=== PATIENT | female | born 1960 | race Caucasian/White ===

== ENCOUNTER 2017-04-17 19:44 | Emergency (ER) | payer MEDICARE, MEDICAID ==
[~2017-04-17 19:44] MED LIST: /CARB20TAB OR; /CELE20CA PO; /ESCI20TA PO; /LAMO10TA; /LAMO10TA OR; /LAMO10TA PO; /LAMO15TA; /LOR25TA PO; /METH500TA OR; /ONDA4TA OR; /TIOT18INH INH; ABIL1TAB11 PO; ACYC400T PO; ALBU17IN2 INH; ASPI81TA83 OR; ASPI81TA85 PO; BACL10TA2 OR; BUSP5TAB45 PO; CLAR5CHW PO; CLON0.5T PO; COLA100C2 PO; DILA100C; DOCQ100C PO; EFFE75CA75; FLEX10TA2 PO; FLON0.05; HYDR50TA8; HYDROCODONE PO; IBUP600T OR; KLON0.5T OR; LASI20TA OR; LOPE2TAB3 PO; MELO7.5T3 PO; NAPR500T3 PO; OLAN5TAB PO; OMEP20TA7 OR; OSCA200T PO; OXCA600T PO; OXYCARBAZEPINE PO; OYSCTAB3 PO; OYST500T76 PO; PHEN 25 PO; PREG100CA PO; PREG50CA PO; PROAAER IN; PROAAER10 INH; PROAIR INH; PROC5TAB PO; QUET30TA; ROBA750T PO; ROBA750T4 PO; RYBIX SL; SERO400T PO; SIMV10TA2 PO; SKEL800T5; SPIR50TA2 OR; SUMA100T2 PO; SYMB16INH INH; SYMB80AE INH; THERGRAN PO; TIOT18INH INH; TOPI25TA2 OR; TRAM50TA2 OR; TRAM50TA2 PO; TRAZ100T OR; TRIL1TAB PO; TRIL600T PO; TYLE500T53 OR; ULTRAM OR; VIT D; VIT D 2000 PO; VITAMIN D PO; VITAMIN D50000 UNT; ZOMI5TAB PO; ZYRT10TA6 PO; [UNRECOGNIZED DRUG - OTHER] PO; [UNRECOGNIZED DRUG - OTHER] TOP
[2017-04-17 19:46] VITALS: BP 137/90
[2017-04-17] MEDS ORDERED: BACL10TA2 (20:02)
[2017-04-17] MEDS ORDERED: BREO1INH INH (20:02)
[2017-04-17] MEDS ORDERED: HYDR50TA70 (20:02)
[2017-04-17] MEDS ORDERED: SING5CHW23 PO (20:02)
[2017-04-17] MEDS ORDERED: INCR1INH IN (20:02)
[2017-04-17] MEDS ORDERED: IBUPROFEN 600 MG TAB PO ONE (21:15)
== END 2017-04-17 21:29 | disposition home or self-care (01) ==
LOC: M ED 19:44
DX: S29.012A Strain of muscle and tendon of back wall of thorax, initial encounter (principal); X50.0XXA Overexertion from strenuous movement or load, initial encounter; Y92.099 Unspecified place in other non-institutional residence as the place of occurrence of the external cause; Y93.89 Activity, other specified; Y99.9 Unspecified external cause status

== ENCOUNTER 2017-05-25 10:47 | Emergency (ER) | payer MEDICARE, MEDICAID ==
[~2017-05-25] VITALS: Ht 154.9 cm; Wt 90.9 kg
[~2017-05-25 10:47] MED LIST changes: +BACL10TA2; +BREO1INH INH; +HYDR50TA70; +INCR1INH IN; +SING5CHW23 PO
[2017-05-25] MEDS ORDERED: CETI10TA (10:57)
[2017-05-25] MEDS ORDERED: TAB-TAB (10:57)
[2017-05-25] MEDS ORDERED: LAMO150T (10:57)
[2017-05-25] MEDS ORDERED: IBUP80TA (10:57)
[2017-05-25 13:05] LABS: CALCIUM OXALATE CRYSTALS SMALL
[2017-05-25 13:19] VITALS: BP 140/83
[2017-05-25] MEDS ORDERED: PERCOCET 5MG/325MG TAB PO ONE (13:30)
[2017-05-25] MEDS ORDERED: NORCO, ANEXSIA 5/325MG TABLET (HYDROcodone/ACETAMINOPHEN) PO ONE (13:30)
[2017-05-25] MEDS ORDERED: NYSTOI TOP (13:30)
[2017-05-25] MEDS ORDERED: FLUCONAZOLE 100 MG TAB PO ONE (13:30)
[2017-05-25] MEDS ORDERED: FLUCONAZOLE 50MG TABLET PO ONE (13:30)
[2017-05-25] MEDS ORDERED: BACT800T5 PO (13:33)
== END 2017-05-25 13:42 | disposition home or self-care (01) ==
LOC: M ED 10:47
DX: N39.0 Urinary tract infection, site not specified (principal); B37.3 Candidiasis of vulva and vagina; F25.9 Schizoaffective disorder, unspecified; F43.10 Post-traumatic stress disorder, unspecified; E78.70 Disorder of bile acid and cholesterol metabolism, unspecified; F17.210 Nicotine dependence, cigarettes, uncomplicated; Z79.899 Other long term (current) drug therapy; Z91.041 Radiographic dye allergy status; Z88.8 Allergy status to other drugs, medicaments and biological substances; Z88.5 Allergy status to narcotic agent; Z91.018 Allergy to other foods; Z91.013 Allergy to seafood; Z91.02 Food additives allergy status; Z91.011 Allergy to milk products

== ENCOUNTER 2017-07-22 00:56 | Emergency (ER) | payer MEDICARE, MEDICAID ==
[~2017-07-22] VITALS: Ht 154.9 cm; Wt 111.3 kg
[~2017-07-22 00:56] MED LIST changes: +BACT800T5 PO; +CETI10TA; +IBUP80TA; +LAMO150T; +NYSTOI TOP; +TAB-TAB
[2017-07-22] MEDS ORDERED: MORPHINE 4 MG/ML 1ML SYRINGE IM ONE (02:00)
[2017-07-22 02:22] VITALS: BP 138/72
--- NOTE | 2017-07-22 08:51 | REP ---
LUMBOSACRAL SPINE: Five views of the lumbosacral spine are performed. There is an old compression fracture of L3 similar to the prior study of 05/12/2013. No new compression fracture is seen. There is diffuse spurring and disc space narrowing. There is severe disc space narrowing at L3-4. The disc space narrowing at L4-5 and L5-S1 is mild but increased since prior study. There is sclerosis at the posterior facet joints of L4-5 and L5-S1. There is mild curvature toward the right. IMPRESSION: Old compression fracture L3. Degenerative changes. No acute fracture. Signed by Linwood Beltran MD 07/25/2017 09:43 A
== END 2017-07-22 02:26 | disposition home or self-care (01) ==
LOC: M ED 00:56
DX: M51.37 Other intervertebral disc degeneration, lumbosacral region (principal); S39.012A Strain of muscle, fascia and tendon of lower back, initial encounter; W06.XXXA Fall from bed, initial encounter; Y92.013 Bedroom of single-family (private) house as the place of occurrence of the external cause; Y93.89 Activity, other specified; Y99.8 Other external cause status; M19.90 Unspecified osteoarthritis, unspecified site; E11.9 Type 2 diabetes mellitus without complications; R56.9 Unspecified convulsions; G43.909 Migraine, unspecified, not intractable, without status migrainosus; J98.4 Other disorders of lung; F43.10 Post-traumatic stress disorder, unspecified; F25.9 Schizoaffective disorder, unspecified; Z79.899 Other long term (current) drug therapy; Z79.51 Long term (current) use of inhaled steroids; Z88.5 Allergy status to narcotic agent; Z88.8 Allergy status to other drugs, medicaments and biological substances; Z91.013 Allergy to seafood; Z91.011 Allergy to milk products; Z91.018 Allergy to other foods; Z91.041 Radiographic dye allergy status; F17.210 Nicotine dependence, cigarettes, uncomplicated

== ENCOUNTER 2017-08-02 06:58 | Emergency (ER) | payer OTHER, MEDICARE, MEDICAID ==
[~2017-08-02] VITALS: Ht 154.9 cm; Wt 84.0 kg
[2017-08-02] MEDS ORDERED: NORCO, ANEXSIA 5/325MG TABLET (HYDROcodone/ACETAMINOPHEN) PO ONE (07:15)
--- NOTE | 2017-08-02 08:42 | REP ---
AP pelvis and right hip: AP pelvis: There is chronic deformity of the r left iliac wing, unchanged from 04/23/2016. There is no pelvic fracture. The sacroiliac articulations are unremarkable. There is mild joint space narrowing of the hips bilaterally. There are pelvic calcifications, likely phleboliths. There is an accessory ossicle at the superior margin of the pubic symphysis. Impression: No pelvic fracture. Right hip two views: There is joint space narrowing compatible with osteoarthritis. There is no fracture or dislocation. There is demineralization. Impression: Joint space narrowing and demineralization. No fracture. Signed by Linwood Hyman MD 08/02/2017 08:33 A
--- NOTE | 2017-08-02 08:43 | REP ---
Right knee four views: Comparison 04/23/2016. There is diffuse demineralization. Old healed fracture with deformity of the distal femur. Advanced tricompartment osteoarthritis, unchanged. No acute fracture or dislocation. No hemarthrosis. Signed by Linwood Hyman MD 08/02/2017 08:34 A
--- NOTE | 2017-08-02 08:45 | REP ---
Right ankle four views: Comparison 04/23/2016. There is no fracture or dislocation. There is diffuse demineralization, unchanged. There is a calcified lesion in the distal tibia, unchanged, compatible with enchondroma. The mortise is symmetric. There is a tiny calcaneal plantar spur. Impression: Demineralization. Probable enchondroma in the distal tibia. No fracture or dislocation. Signed by Linwood Hyman MD 08/02/2017 08:36 A
[2017-08-02 10:04] VITALS: BP 135/85
--- NOTE | 2017-08-02 12:17 | ED PDOC ---
Post-Departure Follow-Up certified letter sent regarding radiology report Yessenia Mcgill MD Aug 02, 2017 12:17
== END 2017-08-02 10:12 | disposition home or self-care (01) ==
LOC: EDBD 06:58 → M ED 06:58
DX: S80.11XA Contusion of right lower leg, initial encounter (principal); V03.19XA Pedestrian with other conveyance injured in collision with car, pick-up truck or van in traffic accident, initial encounter; Y92.410 Unspecified street and highway as the place of occurrence of the external cause; Y93.89 Activity, other specified; Y99.9 Unspecified external cause status

== ENCOUNTER 2017-08-31 11:05 | Emergency (ER) | payer MEDICARE, MEDICAID ==
[~2017-08-31] VITALS: Ht 165.1 cm; Wt 114.8 kg
[2017-08-31] MEDS ORDERED: NS 3,440 ML in APPROPRIATE DILUENT 1 EA IV ONE (11:30)
[2017-08-31 11:37] LABS: BASO % 0.6 % (0.0-1.0); EOS # 0.1 10^3/uL (0.0-0.50); EOS % 1.6 % (0.0-3.0); IMMATURE GRANULOCYTE % 1.3 % (0-0); LYMPH % 31.9 % (24.0-44.0); MEAN CORPUSCULAR HEMOGLOBIN 30.6 pg (27.0-33.0); MEAN CORPUSCULAR HGB CONC 34.4 g/dl (32.0-36.5); MEAN CORPUSCULAR VOLUME 89.1 fl (80.0-96.0); MONO # 0.3 10^3/uL (0.0-0.8); MONO % 5.3 % (0.0-5.0); NEUTROPHILS # 3.8 10^3/uL (1.8-7.7); NEUTROPHILS % 59.3 % (36.0-66.0); PLATELET COUNT, AUTOMATED 195 10^3/uL (150-450); RED CELL DISTRIBUTION WIDTH 13.5 % (11.5-14.5); WHITE BLOOD COUNT 6.4 10^3/uL (4.0-10.0)
[2017-08-31 11:48] LABS: ABG BASE EXCESS -2.3 (-2.0-2.0); ABG HCO3 22.5 MEQ/L (22.0-26.0); ABG PARTIAL PRESSURE CO2 39.1 mmHg (35.0-45.0); ABG PARTIAL PRESSURE O2 70.3 mmHg (75.0-100.0); ABG STANDARD HCO3 22.5 MEQ/L (22.0-26.0); ABG TOTAL CO2 23.7 MEQ/L (22.0-29.0); ABG pH (ARTERIAL) 7.378 UNITS (7.350-7.450)
[2017-08-31 12:00] VITALS: BP 106/59
[2017-08-31 12:00] LABS: INR 0.96
[2017-08-31 12:08] LABS: ALBUMIN 3.3 GM/DL (3.2-5.2); ALBUMIN/GLOBULIN RATIO 0.83 (1.00-1.93); ALKALINE PHOSPHATASE 177 U/L (45-117); ALT/SGPT 56 U/L (12-78); AMYLASE 20 U/L (25-115); ANION GAP 11 MEQ/L (8-16); AST/SGOT 27 U/L (7-37); BILIRUBIN,DIRECT < 0.1 MG/DL (0.0-0.2); BILIRUBIN,TOTAL 0.4 MG/DL (0.2-1.0); BLOOD UREA NITROGEN 9 MG/DL (7-18); CALCIUM LEVEL 8.6 MG/DL (8.5-10.1); CARBON DIOXIDE LEVEL 24 MEQ/L (21-32); CHLORIDE LEVEL 101 MEQ/L (98-107); CREATININE FOR GFR 0.72 MG/DL (0.55-1.02); GLOMERULAR FILTRATION RATE > 60.0 (>51); POTASSIUM SERUM 3.7 MEQ/L (3.5-5.1); SODIUM LEVEL 136 MEQ/L (136-145); TOTAL PROTEIN 7.3 GM/DL (6.4-8.2)
[2017-08-31 12:12] LABS: GLUCOSE, FASTING 439 MG/DL (70-105)
--- NOTE | 2017-08-31 12:17 | REP ---
Clinical: Sepsis . Comparison: 04/23/2016 . Findings: The mediastinum and cardiac silhouette are stable and within normal limits for portable technique. The lung min are clear without acute consolidation, effusion, or pneumothorax. Skeletal structures are intact. Impression: No acute cardiopulmonary process appreciated. Signed by Bonifacio Chin MD 08/31/2017 12:08 P
--- NOTE | 2017-08-31 20:39 | ECGEPIP ---
Stationary ECG Study [facility] - ED Test Date: 2017-08-31 Pat Name: DAVID CRUZ Department: Room: - Gender: F [employer] Operator: tolu : 1960 Requested By: Yessenia Mcgill Order Number: [id number] Reading MD: Yessenia Mcgill Measurements Intervals [place] Rate: 69 P: 13 RI: 163 QRS: 40 QRSD: 89 T: 54 QT: 424 QTc: 456 Interpretive Statements SINUS RHYTHM POSSIBLE INFERIOR MYOCARDIAL INFARCTION, OF INDETERMINATE AGE WITH POSTERIOR EXTENSION MODERATE T-WAVE ABNORMALITY, CONSIDER ANTERIOR ISCHEMIA SIMILAR 11/06/14 Electronically Signed On 08-31-2017 20:38:42 EST by Yessenia Mcgill
== END 2017-08-31 12:30 | disposition left against medical advice (07) ==
LOC: EDBD 11:05 → M ED 11:05
DX: R56.9 Unspecified convulsions (principal); E11.9 Type 2 diabetes mellitus without complications; F25.9 Schizoaffective disorder, unspecified; F43.10 Post-traumatic stress disorder, unspecified; Z79.899 Other long term (current) drug therapy; Z79.51 Long term (current) use of inhaled steroids; Z88.5 Allergy status to narcotic agent; Z88.8 Allergy status to other drugs, medicaments and biological substances; Z91.011 Allergy to milk products; Z91.013 Allergy to seafood; Z91.018 Allergy to other foods; Z91.041 Radiographic dye allergy status

== ENCOUNTER → 2018-02-17 | Outpatient (REF) | payer MEDICARE | LOC: M SFHCPLAZ 11:57 | DX: C44.311 Basal cell carcinoma of skin of nose (principal) | CPT/HCPCS: 88305 ==

== ENCOUNTER 2018-02-27 19:42 | Emergency (ER) | payer MEDICARE ==
[2018-02-27] MEDS: FLUCONAZOLE 100 MG TAB PO (23:15)
[2018-02-27] MEDS: BACTRIM 160MG/800MG DS TAB PO (23:15)
== END 2018-02-27 23:38 | disposition home or self-care (01) ==
LOC: M ED 19:42
DX: L03.012 Cellulitis of left finger (principal); X08.8XXA Exposure to other specified smoke, fire and flames, initial encounter; Y92.9 Unspecified place or not applicable; Y93.9 Activity, unspecified; Y99.9 Unspecified external cause status; Z72.0 Tobacco use; Z79.899 Other long term (current) drug therapy; Z88.6 Allergy status to analgesic agent; Z88.5 Allergy status to narcotic agent; Z88.8 Allergy status to other drugs, medicaments and biological substances; Z91.02 Food additives allergy status; Z91.018 Allergy to other foods; Z91.041 Radiographic dye allergy status; Z91.013 Allergy to seafood; Z91.011 Allergy to milk products
CPT/HCPCS: 10060

== ENCOUNTER 2018-03-01 08:29 | Emergency (ER) | payer MEDICARE ==
[2018-03-01] MEDS: ONDANSETRON 4MG/2ML VIAL (J2405) IV (11:13)
[2018-03-01] MEDS: MORPHINE 4 MG/ML 1ML VIAL/SYRINGE (J2270) IV (11:13)
[2018-03-01 11:20] LABS: HEMATOCRIT 45.2 % (36.0-47.0); HEMOGLOBIN 15.2 g/dl (12.0-15.5); MEAN CORPUSCULAR HEMOGLOBIN 29.6 pg (27.0-33.0); MEAN CORPUSCULAR HGB CONC 33.6 g/dl (32.0-36.5); MEAN CORPUSCULAR VOLUME 88.1 fl (80.0-96.0); PLATELET COUNT, AUTOMATED 242 10^3/uL (150-450); RED BLOOD COUNT 5.13 10^6/uL (4.00-5.40); RED CELL DISTRIBUTION WIDTH 12.3 % (11.5-14.5)
[2018-03-01 11:25] LABS: ANION GAP 8 MEQ/L (8-16); BLOOD UREA NITROGEN 12 MG/DL (7-18); CARBON DIOXIDE LEVEL 25 MEQ/L (21-32); CHLORIDE LEVEL 108 MEQ/L (98-107); CREATININE FOR GFR 0.62 MG/DL (0.55-1.30); GLOMERULAR FILTRATION RATE > 60.0 (>51); GLUCOSE, FASTING 288 MG/DL (70-100); POTASSIUM SERUM 3.9 MEQ/L (3.5-5.1); SODIUM LEVEL 141 MEQ/L (136-145)
[2018-03-01 11:30] LABS: INR 0.95; PROTHROMBIN TIME 12.8 SECONDS (12.4-14.5)
[2018-03-01 11:31] LABS: PARTIAL THROMBOPLASTIN TIME 23.8 SECONDS (26.8-37.9)
== END 2018-03-01 17:50 | disposition short-term general hospital (02) ==
LOC: M ED 08:29
DX: S72.331A Displaced oblique fracture of shaft of right femur, initial encounter for closed fracture (principal); W01.10XA Fall on same level from slipping, tripping and stumbling with subsequent striking against unspecified object, initial encounter; Y92.099 Unspecified place in other non-institutional residence as the place of occurrence of the external cause; Y93.9 Activity, unspecified; Y99.8 Other external cause status; M17.0 Bilateral primary osteoarthritis of knee; J44.9 Chronic obstructive pulmonary disease, unspecified; F41.9 Anxiety disorder, unspecified; F31.9 Bipolar disorder, unspecified; F43.10 Post-traumatic stress disorder, unspecified; E66.01 Morbid (severe) obesity due to excess calories; G40.909 Epilepsy, unspecified, not intractable, without status epilepticus; M81.0 Age-related osteoporosis without current pathological fracture; F17.210 Nicotine dependence, cigarettes, uncomplicated; Z88.5 Allergy status to narcotic agent; Z88.6 Allergy status to analgesic agent; Z88.8 Allergy status to other drugs, medicaments and biological substances; Z91.011 Allergy to milk products; Z91.041 Radiographic dye allergy status; Z91.013 Allergy to seafood; Z91.018 Allergy to other foods; Z91.048 Other nonmedicinal substance allergy status; Z79.899 Other long term (current) drug therapy
CPT/HCPCS: J2270

== ENCOUNTER 2018-03-20 02:24 | Emergency (ER) | payer MEDICARE | END 2018-03-20 02:31 | disposition left against medical advice (07) | LOC: M ED 02:24 | DX: Z53.29 Procedure and treatment not carried out because of patient's decision for other reasons (principal) ==

== ENCOUNTER 2018-03-21 09:16 | Emergency (ER) | payer MEDICARE ==
[2018-03-21] MEDS: PERCOCET 5MG/325MG TAB PO (10:00)
== END 2018-03-21 11:38 | disposition home or self-care (01) ==
LOC: M ED 09:16
DX: Z76.0 Encounter for issue of repeat prescription (principal); M79.606 Pain in leg, unspecified; Z79.899 Other long term (current) drug therapy; Z88.5 Allergy status to narcotic agent; Z91.041 Radiographic dye allergy status; Z91.018 Allergy to other foods; Z91.013 Allergy to seafood; Z91.011 Allergy to milk products; Z91.02 Food additives allergy status; Z98.890 Other specified postprocedural states
CPT/HCPCS: 99283

== ENCOUNTER 2018-03-24 09:45 | Emergency (ER) | payer MEDICARE ==
[2018-03-24] MEDS: PERCOCET 5MG/325MG TAB PO (10:18)
== END 2018-03-24 11:00 | disposition home or self-care (01) ==
LOC: M ED 09:45
DX: G89.29 Other chronic pain (principal); M25.551 Pain in right hip; M25.552 Pain in left hip; Z76.0 Encounter for issue of repeat prescription; G43.909 Migraine, unspecified, not intractable, without status migrainosus; R56.9 Unspecified convulsions; Z72.0 Tobacco use; Z79.899 Other long term (current) drug therapy; Z91.02 Food additives allergy status; Z91.018 Allergy to other foods; Z91.011 Allergy to milk products; Z91.013 Allergy to seafood; Z88.5 Allergy status to narcotic agent; Z88.8 Allergy status to other drugs, medicaments and biological substances
CPT/HCPCS: 99282

== ENCOUNTER 2018-03-25 20:08 | Emergency (ER) | payer MEDICARE ==
[2018-03-25] MEDS ORDERED: OXYCODONE/APAP 5MG/325MG(BULK FOR ED) 1 TABLET PO (22:15)
== END 2018-03-25 22:36 | disposition home or self-care (01) ==
LOC: M ED 20:08
DX: S63.501A Unspecified sprain of right wrist, initial encounter (principal); S63.502A Unspecified sprain of left wrist, initial encounter; W19.XXXA Unspecified fall, initial encounter; Y92.410 Unspecified street and highway as the place of occurrence of the external cause; Y93.9 Activity, unspecified; Y99.9 Unspecified external cause status; F17.210 Nicotine dependence, cigarettes, uncomplicated; Z79.899 Other long term (current) drug therapy; Z88.5 Allergy status to narcotic agent; Z88.8 Allergy status to other drugs, medicaments and biological substances; Z91.011 Allergy to milk products; Z91.013 Allergy to seafood; Z91.018 Allergy to other foods; Z91.041 Radiographic dye allergy status
CPT/HCPCS: 99282

== ENCOUNTER 2018-04-11 01:29 | Emergency (ER) | payer MEDICARE | END 2018-04-11 03:27 | disposition home or self-care (01) | LOC: M ED 03:27 | DX: Z53.21 Procedure and treatment not carried out due to patient leaving prior to being seen by health care provider (principal) | CPT/HCPCS: 99281 ==

== ENCOUNTER 2018-04-15 01:53 | Emergency (ER) | payer MEDICARE | END 2018-04-15 04:06 | disposition left against medical advice (07) | LOC: M ED 01:53 | DX: M25.561 Pain in right knee (principal); M25.562 Pain in left knee; Z53.21 Procedure and treatment not carried out due to patient leaving prior to being seen by health care provider ==

== ENCOUNTER 2018-04-30 13:36 | Emergency (ER) | payer MEDICARE, MEDICAID ==
[2018-04-30] MEDS: ACETAMINOPHEN TAB 650MG DOSE (2X325MG) PO (14:51)
[2018-04-30 14:57] LABS: BEDSIDE GLUCOSE 154 MG/DL (70-105)
== END 2018-04-30 17:29 | disposition home or self-care (01) ==
LOC: M ED 13:36
DX: S80.01XA Contusion of right knee, initial encounter (principal); S00.03XA Contusion of scalp, initial encounter; S16.1XXA Strain of muscle, fascia and tendon at neck level, initial encounter; V00.811A Fall from moving wheelchair (powered), initial encounter; Y92.410 Unspecified street and highway as the place of occurrence of the external cause; J45.909 Unspecified asthma, uncomplicated; J44.9 Chronic obstructive pulmonary disease, unspecified; E11.9 Type 2 diabetes mellitus without complications; F43.10 Post-traumatic stress disorder, unspecified; F31.9 Bipolar disorder, unspecified; Z91.02 Food additives allergy status; Z91.018 Allergy to other foods; Z88.5 Allergy status to narcotic agent; Z91.041 Radiographic dye allergy status; Z91.011 Allergy to milk products; Z91.013 Allergy to seafood; Z88.8 Allergy status to other drugs, medicaments and biological substances; Z79.51 Long term (current) use of inhaled steroids; Z79.899 Other long term (current) drug therapy; Z79.84 Long term (current) use of oral hypoglycemic drugs; Z79.82 Long term (current) use of aspirin
CPT/HCPCS: 73564

== ENCOUNTER 2018-05-25 15:29 | Emergency (ER) | payer MEDICARE | END 2018-05-25 17:56 | disposition home or self-care (01) | LOC: M ED 15:29 | DX: S91.209A Unspecified open wound of unspecified toe(s) with damage to nail, initial encounter (principal); E11.42 Type 2 diabetes mellitus with diabetic polyneuropathy; I25.2 Old myocardial infarction; I25.10 Atherosclerotic heart disease of native coronary artery without angina pectoris; Z79.84 Long term (current) use of oral hypoglycemic drugs; Y99.9 Unspecified external cause status | CPT/HCPCS: 99284 ==

== ENCOUNTER 2018-07-11 11:19 | Emergency (ER) | payer MEDICARE, MEDICAID ==
[2018-07-11 13:06] LABS: BASO % 0.5 % (0.0-1.0); EOS # 0.2 10^3/uL (0.0-0.50); EOS % 2.4 % (0.0-3.0); HEMATOCRIT 36.3 % (36.0-47.0); IMMATURE GRANULOCYTE % 1.1 % (0-3.0); LYMPH # 2.1 10^3/uL (1.5-4.5); LYMPH % 31.2 % (24.0-44.0); MEAN CORPUSCULAR HEMOGLOBIN 28.1 pg (27.0-33.0); MEAN CORPUSCULAR HGB CONC 33.1 g/dl (32.0-36.5); MONO # 0.4 10^3/uL (0.0-0.8); NEUTROPHILS # 3.9 10^3/uL (1.8-7.7); NEUTROPHILS % 58.8 % (36.0-66.0); PLATELET COUNT, AUTOMATED 217 10^3/uL (150-450); RED BLOOD COUNT 4.27 10^6/uL (4.00-5.40); WHITE BLOOD COUNT 6.6 10^3/uL (4.0-10.0)
[2018-07-11 13:16] LABS: INR 0.96; PROTHROMBIN TIME 12.9 SECONDS (12.1-14.4)
[2018-07-11 13:17] LABS: PARTIAL THROMBOPLASTIN TIME 24.7 SECONDS (25.4-37.6)
[2018-07-11 13:40] LABS: ALBUMIN 3.1 GM/DL (3.2-5.2); ALBUMIN/GLOBULIN RATIO 0.89 (1.00-1.93); ALKALINE PHOSPHATASE 102 U/L (45-117); ALT/SGPT 24 U/L (12-78); ANION GAP 7 MEQ/L (8-16); AST/SGOT 10 U/L (7-37); BILIRUBIN,DIRECT 0.1 MG/DL (0.0-0.2); BILIRUBIN,TOTAL 0.4 MG/DL (0.2-1.0); BLOOD UREA NITROGEN 12 MG/DL (7-18); CALCIUM LEVEL 9.1 MG/DL (8.5-10.1); CARBON DIOXIDE LEVEL 26 MEQ/L (21-32); CHLORIDE LEVEL 108 MEQ/L (98-107); CPK CREATINE PHOSPHOKINASE 52 U/L (26-192); CREATININE FOR GFR 0.48 MG/DL (0.55-1.30); FREE T4 0.83 NG/DL (0.76-1.46); GLOMERULAR FILTRATION RATE > 60.0 (>51); GLUCOSE, FASTING 153 MG/DL (70-100); MB/CK RELATIVE INDEX 2.12 (< OR =4); POTASSIUM SERUM 4.1 MEQ/L (3.5-5.1); SODIUM LEVEL 141 MEQ/L (136-145); TOTAL PROTEIN 6.6 GM/DL (6.4-8.2); TROPONIN I < 0.02 NG/ML (< 0.10)
== END 2018-07-11 17:55 | disposition home or self-care (01) ==
LOC: M ED 11:19
DX: R60.0 Localized edema (principal); J44.9 Chronic obstructive pulmonary disease, unspecified; F41.9 Anxiety disorder, unspecified; F31.9 Bipolar disorder, unspecified; G89.29 Other chronic pain; Z72.0 Tobacco use; Z79.82 Long term (current) use of aspirin; Z79.84 Long term (current) use of oral hypoglycemic drugs; Z79.899 Other long term (current) drug therapy; Z91.018 Allergy to other foods; Z91.011 Allergy to milk products; Z91.013 Allergy to seafood; Z91.041 Radiographic dye allergy status; Z88.8 Allergy status to other drugs, medicaments and biological substances; Z88.5 Allergy status to narcotic agent
CPT/HCPCS: 71046

== ENCOUNTER → 2018-07-17 | Outpatient (REF) | payer MEDICARE, MEDICAID ==
[~2018-07-17] MED LIST changes: +ARIP1TAB6; +ASPI-222; +ATOR1TAB21; +BUSP10TA; +DIFL200T PO; -LAMO150T; +LAMO150T2; +METF500T13; +MONT10TA2; +NAPR-885 PO; -NAPR500T3 PO; +NYST50SS; +OXYCOD/APAP; +PERC5TAB12 PO; +SPIR1CAP; +SYMBICORT; +TIZANIDINE
[2018-07-17 13:19] LABS: BASO % 0.3 % (0.0-1.0); EOS # 0.1 10^3/uL (0.0-0.50); EOS % 1.7 % (0.0-3.0); HEMATOCRIT 40.3 % (36.0-47.0); HEMOGLOBIN 12.8 g/dl (12.0-15.5); LYMPH # 1.9 10^3/uL (1.5-4.5); LYMPH % 27.2 % (24.0-44.0); MEAN CORPUSCULAR HEMOGLOBIN 27.7 pg (27.0-33.0); MEAN CORPUSCULAR HGB CONC 31.8 g/dl (32.0-36.5); MEAN CORPUSCULAR VOLUME 87.2 fl (80.0-96.0); MONO # 0.4 10^3/uL (0.0-0.8); MONO % 6.2 % (0.0-5.0); NEUTROPHILS # 4.4 10^3/uL (1.8-7.7); NEUTROPHILS % 63.5 % (36.0-66.0); PLATELET COUNT, AUTOMATED 279 10^3/uL (150-450); RED BLOOD COUNT 4.62 10^6/uL (4.00-5.40)
== END ==
LOC: M SFHCPLAZ 10:27
PROVIDERS: ATTEND Nurse Practitioner Family
DX: R60.0 Localized edema (principal); F17.210 Nicotine dependence, cigarettes, uncomplicated; Z91.09 Other allergy status, other than to drugs and biological substances; Z23 Encounter for immunization
CPT/HCPCS: 36415; 83880; 85025; 90682; G0008

== ENCOUNTER 2018-09-30 19:50 | Emergency (ER) | payer MEDICARE, MEDICAID ==
[~2018-09-30] VITALS: Ht 162.6 cm; Wt 88.6 kg
[2018-09-30] MEDS ORDERED: traMADol 50 MG TAB PO ONE (20:30)
[2018-09-30] MEDS ORDERED: TRAM50TA2 PO (20:32)
[2018-09-30 21:23] VITALS: BP 112/55
== END 2018-09-30 21:52 | disposition home or self-care (01) ==
LOC: M ED 19:50
DX: L98.9 Disorder of the skin and subcutaneous tissue, unspecified (principal); E11.9 Type 2 diabetes mellitus without complications; I10 Essential (primary) hypertension; G43.909 Migraine, unspecified, not intractable, without status migrainosus; Z79.82 Long term (current) use of aspirin; Z79.899 Other long term (current) drug therapy; Z91.018 Allergy to other foods; Z91.013 Allergy to seafood; Z91.011 Allergy to milk products; Z91.041 Radiographic dye allergy status; Z91.89 Other specified personal risk factors, not elsewhere classified; Z88.8 Allergy status to other drugs, medicaments and biological substances; Z88.5 Allergy status to narcotic agent

== ENCOUNTER → 2018-11-29 | Outpatient (REF) | payer MEDICARE, MEDICAID ==
[2018-11-29 13:56] LABS: ALT/SGPT 45 U/L (12-78); BILIRUBIN,TOTAL 0.5 MG/DL (0.2-1.0); BLOOD UREA NITROGEN 16 MG/DL (7-18); CALCIUM LEVEL 8.9 MG/DL (8.5-10.1); CARBON DIOXIDE LEVEL 25 MEQ/L (21-32); CHLORIDE LEVEL 101 MEQ/L (98-107); CHOLESTEROL LEVEL 186 MG/DL (<200); CHOLESTEROL RISK RATIO 5.314 (<5); FREE T4 1.07 NG/DL (0.76-1.46); GLOMERULAR FILTRATION RATE > 60.0 (>51); GLUCOSE, FASTING 300 MG/DL (70-100); HDL CHOLESTEROL 35 MG/DL (>40); IRON (FE) 96 UG/DL (50-170); NON-HDL-C 151 MG/DL; PERCENT SATURATION 26.7 % (13.2-45.0); POTASSIUM SERUM 3.8 MEQ/L (3.5-5.1); SODIUM LEVEL 136 MEQ/L (136-145); TOTAL IRON BINDING CAPACITY 360 UG/DL (250-450); TOTAL PROTEIN 7.2 GM/DL (6.4-8.2); TRIGLYCERIDES LEVEL 518 MG/DL (<150)
[2018-11-29 14:37] LABS: HEMOGLOBIN A1c 8.1 %
== END ==
LOC: M SFHCPLAZ 11:22
PROVIDERS: ATTEND Family Medicine
DX: Z13.228 Encounter for screening for other metabolic disorders (principal); Z86.39 Personal history of other endocrine, nutritional and metabolic disease

== ENCOUNTER → 2019-01-09 | Outpatient (REF) | payer MEDICARE, MEDICAID ==
[~2019-01-09] MED LIST changes: -/CARB20TAB OR; -/CELE20CA PO; -/ESCI20TA PO; -/LAMO10TA; -/LAMO10TA OR; -/LAMO10TA PO; -/LAMO15TA; -/METH500TA OR; -/ONDA4TA OR; -/TIOT18INH INH; +BACL1TAB9 PO; +CARB1TAB20 OR; +CELE1CAP4 PO; +LAMI1TAB7; +LAMI1TAB7 OR; +LAMI1TAB7 PO; +LAMI1TAB8; +LEXA1TAB2 PO; +METH1TAB40 OR; +ONDA-1 OR; +SPIR1CAP INH
== END ==
LOC: M SFHCPLAZ 10:22
PROVIDERS: ATTEND Family Medicine
DX: R60.0 Localized edema (principal); E11.65 Type 2 diabetes mellitus with hyperglycemia; J44.1 Chronic obstructive pulmonary disease with (acute) exacerbation
CPT/HCPCS: 36415; 83880; 87804; 92250; G0463

== ENCOUNTER 2019-01-19 13:44 | Emergency (ER) | payer MEDICARE, MEDICAID ==
[~2019-01-19 13:44] MED LIST changes: -BACL1TAB9 PO
[2019-01-19] MEDS ORDERED: KETOROLAC 60 MG/2 ML VIAL (J1885) IM ONE (14:15)
[2019-01-19] MEDS ORDERED: BACLOFEN 10 MG TAB PO ONE (14:15)
[2019-01-19] MEDS ORDERED: BACL1TAB9 PO (15:26)
[2019-01-19 15:46] VITALS: BP 96/54
== END 2019-01-19 16:03 | disposition home or self-care (01) ==
LOC: EDBD 13:44 → M ED 13:44
DX: M54.17 Radiculopathy, lumbosacral region (principal); G89.29 Other chronic pain; M79.604 Pain in right leg; E11.9 Type 2 diabetes mellitus without complications; F31.9 Bipolar disorder, unspecified; F20.9 Schizophrenia, unspecified; F43.10 Post-traumatic stress disorder, unspecified; G43.909 Migraine, unspecified, not intractable, without status migrainosus; Z79.899 Other long term (current) drug therapy; Z79.82 Long term (current) use of aspirin; Z91.011 Allergy to milk products; Z91.013 Allergy to seafood; Z91.018 Allergy to other foods; Z91.041 Radiographic dye allergy status; Z91.048 Other nonmedicinal substance allergy status; F17.210 Nicotine dependence, cigarettes, uncomplicated
CPT/HCPCS: 96372; 99284; J1885

== ENCOUNTER → 2019-04-02 | Outpatient (REF) | payer MEDICARE, MEDICAID ==
[~2019-04-02] MED LIST changes: +BACL1TAB9 PO
[2019-04-02 17:18] LABS: HEMOGLOBIN A1c 8.9 %
[2019-04-02 17:30] LABS: BLOOD UREA NITROGEN 12 MG/DL (7-18); CALCIUM LEVEL 9.1 MG/DL (8.5-10.1); CARBON DIOXIDE LEVEL 25 MEQ/L (21-32); CHLORIDE LEVEL 103 MEQ/L (98-107); CHOLESTEROL LEVEL 190 MG/DL (<200); CREATININE FOR GFR 0.56 MG/DL (0.55-1.30); GLOMERULAR FILTRATION RATE > 60.0 (>51); GLUCOSE, FASTING 202 MG/DL (70-100); HDL CHOLESTEROL 38 MG/DL (>40); IRON (FE) 92 UG/DL (50-170); NON-HDL-C 152 MG/DL; NT-PRO BNP 109 PG/ML (<125); PERCENT SATURATION 25.8 % (13.2-45.0); POTASSIUM SERUM 3.9 MEQ/L (3.5-5.1); SODIUM LEVEL 136 MEQ/L (136-145); TOTAL IRON BINDING CAPACITY 357 UG/DL (250-450); TRIGLYCERIDES LEVEL 649 MG/DL (<150)
[2019-04-02 17:42] LABS: CREATININE, URINE 46.8 MG/DL; MALB URINE SIEMENS 11.1 MG/L; MAU/CREAT RATIO 23.7 MCG/MG (0.0-30.0)
== END ==
LOC: M SFHCPLAZ 14:35
PROVIDERS: ATTEND Family Medicine
DX: R60.0 Localized edema (principal); E11.65 Type 2 diabetes mellitus with hyperglycemia; E78.1 Pure hyperglyceridemia; Z86.39 Personal history of other endocrine, nutritional and metabolic disease

== ENCOUNTER → 2019-08-10 | Outpatient (REF) | payer MEDICARE, MEDICAID ==
[~2019-08-10] MED LIST changes: -ASPI-222; +ASPI-527; -LAMO150T2; +LAMO150T3
[2019-08-10 10:37] LABS: HEMOGLOBIN A1c 8.4 %
[2019-08-10 10:43] LABS: BLOOD UREA NITROGEN 14 MG/DL (7-18); CALCIUM LEVEL 8.9 MG/DL (8.5-10.1); CARBON DIOXIDE LEVEL 27 MEQ/L (21-32); CHLORIDE LEVEL 106 MEQ/L (98-107); CHOLESTEROL LEVEL 283 MG/DL (<200); CHOLESTEROL RISK RATIO 7.648 (<5); GLOMERULAR FILTRATION RATE > 60.0 (>51); GLUCOSE, FASTING 176 MG/DL (70-100); HDL CHOLESTEROL 37 MG/DL (>40); NON-HDL-C 246 MG/DL; POTASSIUM SERUM 4.2 MEQ/L (3.5-5.1); SODIUM LEVEL 138 MEQ/L (136-145); TRIGLYCERIDES LEVEL 664 MG/DL (<150)
== END ==
LOC: M SFHCPLAZ 08:33
PROVIDERS: ATTEND Family Medicine
DX: R87.623 High grade squamous intraepithelial lesion on cytologic smear of vagina (HGSIL) (principal); E11.65 Type 2 diabetes mellitus with hyperglycemia; E78.1 Pure hyperglyceridemia
CPT/HCPCS: 36415; 80048; 80061; 83036; 88304; G0463

== ENCOUNTER 2019-10-25 10:26 | Emergency (ER) | payer MEDICARE, MEDICAID ==
[2019-10-25 12:00] LABS: BASO % 0.4 % (0.0-1.0); EOS # 0.2 10^3/uL (0.0-0.5); EOS % 2.3 % (0.0-3.0); HEMATOCRIT 41.6 % (36.0-47.0); HEMOGLOBIN 13.6 g/dl (12.0-15.5); LYMPH # 2.3 10^3/uL (1.5-5.0); LYMPH % 33.5 % (24.0-44.0); MEAN CORPUSCULAR HEMOGLOBIN 29.8 pg (27.0-33.0); MEAN CORPUSCULAR HGB CONC 32.7 g/dl (32.0-36.5); MEAN CORPUSCULAR VOLUME 91.2 fl (80.0-96.0); MONO # 0.5 10^3/uL (0.0-0.8); MONO % 6.6 % (0.0-5.0); NEUTROPHILS # 3.9 10^3/uL (1.5-8.5); NEUTROPHILS % 56.5 % (36.0-66.0); PLATELET COUNT, AUTOMATED 213 10^3/uL (150-450); RED BLOOD COUNT 4.56 10^6/uL (4.00-5.40); WHITE BLOOD COUNT 6.9 10^3/uL (4.0-10.0)
[2019-10-25 12:33] LABS: BLOOD UREA NITROGEN 8 MG/DL (7-18); CALCIUM LEVEL 8.9 MG/DL (8.5-10.1); CARBON DIOXIDE LEVEL 24 MEQ/L (21-32); CHLORIDE LEVEL 108 MEQ/L (98-107); CREATININE FOR GFR 0.52 MG/DL (0.55-1.30); GLOMERULAR FILTRATION RATE > 60.0 (>51); GLUCOSE, FASTING 166 MG/DL (70-100); SODIUM LEVEL 140 MEQ/L (136-145)
[2019-10-25] MEDS ORDERED: LOTR1CRE12 TOP (12:57)
[2019-10-25] MEDS ORDERED: SM 88TAB PO (12:57)
[2019-10-25] MEDS ORDERED: ACETAMINOPHEN 325 MG TAB PO ONE (13:00)
[2019-10-25] MEDS ORDERED: NAPROXEN 250 MG TAB PO ONE (13:00)
[2019-10-25] MEDS ORDERED: NORCO, ANEXSIA 5/325MG TABLET (HYDROcodone/ACETAMINOPHEN) PO ONE (13:15)
[2019-10-25 13:35] VITALS: BP 137/68
== END 2019-10-25 15:23 | disposition home or self-care (01) ==
LOC: M ED 10:26 → EDBD 10:26 → M ED 15:23
DX: R10.2 Pelvic and perineal pain (principal); B35.6 Tinea cruris; N90.89 Other specified noninflammatory disorders of vulva and perineum; F17.200 Nicotine dependence, unspecified, uncomplicated; Z79.82 Long term (current) use of aspirin; Z79.899 Other long term (current) drug therapy; Z88.8 Allergy status to other drugs, medicaments and biological substances; Z91.89 Other specified personal risk factors, not elsewhere classified; Z91.018 Allergy to other foods; Z91.040 Latex allergy status; Z91.011 Allergy to milk products

== ENCOUNTER → 2019-10-26 | Outpatient (CLI) | payer MEDICARE, MEDICAID ==
[~2019-10-26] MED LIST changes: +LOTR1CRE12 TOP; +SM 88TAB PO
--- NOTE | 2019-10-26 17:51 | REP ---
Low-dose lung screening CT of the chest: Comparison is the plain film study dated 07/11/2018. There are no comparison CTs. The study is performed without IV contrast. Images are presented at lung windowing only. There are no lung nodules or masses. There are no infiltrates or pleural effusions. Impression: Category one low-dose lung screening CT of the chest. The probability of malignancy is less than 1%. Depending there is factors consider annual follow-up low-dose lung screening CT. Electronically Signed by Linwood Hyman MD 10/26/2019 05:43 P
== END ==
LOC: M RAD 13:13
PROVIDERS: ATTEND Nurse Practitioner Adult Health
DX: Z12.2 Encounter for screening for malignant neoplasm of respiratory organs (principal); F17.210 Nicotine dependence, cigarettes, uncomplicated

== ENCOUNTER 2019-11-06 16:21 | Inpatient (IN) | payer MEDICARE, MEDICAID ==
[~2019-11-06] VITALS: Ht 160 cm; Wt 96.1 kg
[~2019-11-06 16:21] MED LIST changes: -MONT10TA2; +MONT10TA4
[2019-11-06] MEDS ORDERED: ECOT81TA5 PO (16:46)
[2019-11-06] MEDS ORDERED: GLIP5TAB20 PO (16:46)
[2019-11-06] MEDS ORDERED: DICL75TA (16:48)
[2019-11-06] MEDS ORDERED: MORPHINE 10 MG/ML 1ML VIAL (J2270) IM ONE (19:00)
[2019-11-06 19:30] LABS: APPEARANCE, URINE CLEAR (CLEAR); BACTERIA, URINE AUTO NEGATIVE (NEGATIVE); BILIRUBIN, URINE AUTO NEGATIVE (NEGATIVE); BLOOD, URINE BLOOD NEGATIVE (NEGATIVE); COLOR, URINE YELLOW (YELLOW); GLUCOSE, URINE (UA) AUTO 3+ mg/dL (NEGATIVE); KETONE, URINE AUTO TRACE mg/dL (NEGATIVE); LEUKOCYTE ESTERASE, URINE AUTO NEGATIVE (NEGATIVE); NITRITE, URINE AUTO NEGATIVE (NEGATIVE); PROTEIN, URINE AUTO NEGATIVE (NEGATIVE); RBC, URINE AUTO 2 /HPF (0-3); SPECIFIC GRAVITY URINE AUTO 1.011 (1.002-1.035); SQUAMOUS EPITHELIAL CELL UR AU 0 /HPF (0-6); UROBILINOGEN, URINE AUTO 0.2 mg/dL (0.0-2.0); WBC, URINE AUTO 2 /HPF (0-3)
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
[2019-11-06] MEDS ORDERED: HumaLOG INSULIN (NovoLOG) PER UNIT SC SCH (21:00)
[2019-11-06] MEDS: BACLOFEN 10 MG TAB PO SCH ×2 (21:00→23:24)
[2019-11-06] MEDS: busPIRone 10 MG TAB PO SCH ×2 (21:00→23:24)
[2019-11-06] MEDS: CLOTRIMAZOLE 1% TOPICAL CREAM 30GM TOP SCH (21:00)
[2019-11-06] MEDS: ATORVASTATIN 20 MG TAB PO SCH ×2 (21:00→23:24)
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
[2019-11-06] MEDS ORDERED: TRAM50TA2 PO (21:36)
[2019-11-06] MEDS ORDERED: TERB250T12 PO (21:36)
[2019-11-06] MEDS ORDERED: ASPI-161 PO (21:36)
[2019-11-06] MEDS ORDERED: SPIR1CAP INH (21:36)
[2019-11-06] MEDS ORDERED: NYST50SS SSP (21:36)
[2019-11-06] MEDS ORDERED: CLOT1CRE27 TOP (21:36)
[2019-11-06] MEDS ORDERED: HYDR50TA70 PO (21:36)
[2019-11-06] MEDS ORDERED: TYLE650T35 PO (21:36)
[2019-11-06] MEDS ORDERED: OLAN7.5T PO (21:36)
[2019-11-06] MEDS ORDERED: ATOR40TA75 PO (21:36)
[2019-11-06] MEDS ORDERED: SYMB16INH INH (21:36)
[2019-11-06] MEDS ORDERED: VITMTA PO (21:36)
[2019-11-06] MEDS ORDERED: TIZA4TAB4 PO (21:36)
[2019-11-06] MEDS ORDERED: ESCI20TA PO (21:36)
[2019-11-06] MEDS ORDERED: METF500T13 PO (21:36)
[2019-11-06] MEDS ORDERED: DICL75TA PO (21:36)
[2019-11-06] MEDS ORDERED: PROAAER10 INH (21:36)
[2019-11-06] MEDS ORDERED: BACL10TA2 PO (21:36)
[2019-11-06] MEDS ORDERED: INCR1INH INH (21:36)
[2019-11-06] MEDS ORDERED: OMEP1CAP73 PO (21:36)
[2019-11-06] MEDS ORDERED: CETI10TA4 PO (21:36)
[2019-11-06] MEDS ORDERED: MONT10TA4 PO (21:36)
[2019-11-06] MEDS ORDERED: BUSP10TA PO (21:36)
[2019-11-06 22:05] LABS: BASO % 0.3 % (0.0-1.0); EOS # 0.1 10^3/uL (0.0-0.5); EOS % 1.2 % (0.0-3.0); HEMATOCRIT 47.7 % (36.0-47.0); HEMOGLOBIN 15.8 g/dl (12.0-15.5); LYMPH # 2.4 10^3/uL (1.5-5.0); LYMPH % 20.2 % (24.0-44.0); MEAN CORPUSCULAR HEMOGLOBIN 30.1 pg (27.0-33.0); MEAN CORPUSCULAR HGB CONC 33.1 g/dl (32.0-36.5); MEAN CORPUSCULAR VOLUME 90.9 fl (80.0-96.0); MONO # 0.7 10^3/uL (0.0-0.8); MONO % 6.1 % (0.0-5.0); NEUTROPHILS # 8.4 10^3/uL (1.5-8.5); NEUTROPHILS % 71.9 % (36.0-66.0); PLATELET COUNT, AUTOMATED 206 10^3/uL (150-450); RED BLOOD COUNT 5.25 10^6/uL (4.00-5.40); WHITE BLOOD COUNT 11.7 10^3/uL (4.0-10.0)
[2019-11-06 22:36] VITALS: BP 149/72
[2019-11-06 22:41] LABS: BLOOD UREA NITROGEN 7 MG/DL (7-18); CALCIUM LEVEL 9.6 MG/DL (8.5-10.1); CARBON DIOXIDE LEVEL 30 MEQ/L (21-32); CHLORIDE LEVEL 106 MEQ/L (98-107); CREATININE FOR GFR 0.54 MG/DL (0.55-1.30); GLOMERULAR FILTRATION RATE > 60.0 (>51); GLUCOSE, FASTING 155 MG/DL (70-100); POTASSIUM SERUM 5.6 MEQ/L (3.5-5.1); SODIUM LEVEL 141 MEQ/L (136-145)
[2019-11-06] MEDS ORDERED: ACETAMINOPHEN 650MG ER TAB (TYLENOL ARTHRITIS) PO PRN (22:45)
[2019-11-06] MEDS ORDERED: ALBUTEROL 90 MCG/ACT 8GM HFA INHALER INH PRN (22:45)
[2019-11-06] MEDS ORDERED: GLUCOSE 4 GM CHEW TABLET PO PRN (22:45)
[2019-11-06] MEDS ORDERED: GLUCAGON FOR INJ 1 MG VIAL (J1610) SC PRN (22:45)
[2019-11-06] MEDS ORDERED: DEXTROSE 50% 50 ML SYRINGE IV PRN (22:45)
[2019-11-06] MEDS ORDERED: NYSTATIN 500,000 U/5 ML SUSP UDC SSP PRN (22:45)
[2019-11-06] MEDS ORDERED: RAMELTEON 8 MG TAB (ROZEREM) PO PRN (22:45)
[2019-11-06] MEDS ORDERED: hydrOXYzine 50 MG TAB PO PRN (22:45)
[2019-11-06] MEDS: tiZANidine 4 MG TAB PO PRN (23:24)
[2019-11-06] MEDS: traMADol 50 MG TAB PO PRN (23:26)
[2019-11-07] MEDS: traMADol 50 MG TAB PO PRN (02:46)
[2019-11-07 06:00] VITALS: BP 139/79
[2019-11-07] MEDS: HumaLOG INSULIN (NovoLOG) PER UNIT SC SCH ×3 (07:30→17:51)
[2019-11-07] MEDS ORDERED: SYMBICORT 160/4.5MCG INHALER 6GM INH SCH (08:00)
[2019-11-07] MEDS ORDERED: TIOTROPIUM INHALER/CAPSULE (SPIRIVA) INH SCH (08:00)
[2019-11-07] MEDS: CLOTRIMAZOLE 1% TOPICAL CREAM 30GM TOP SCH ×2 (08:40→20:27)
[2019-11-07] MEDS: OMEPRAZOLE 20 MG CAP PO SCH (08:40)
[2019-11-07] MEDS: ESCITALOPRAM OXALATE 10 MG TAB (LEXAPRO) PO SCH (08:41)
[2019-11-07] MEDS: ASPIRIN 81 MG ENTERIC TAB PO SCH (08:41)
[2019-11-07] MEDS: MONTELUKAST 10 MG TAB PO SCH (08:41)
[2019-11-07] MEDS: MULTIVITAMINS/MINERALS THERAP 1 TAB PO SCH (08:41)
[2019-11-07] MEDS: OLANZapine 2.5MG TABLET PO SCH (08:41)
[2019-11-07] MEDS: BACLOFEN 10 MG TAB PO SCH ×3 (08:42→20:26)
[2019-11-07] MEDS: CETIRIZINE (ZyrTEC) 10 MG TAB PO SCH (08:42)
[2019-11-07] MEDS: busPIRone 10 MG TAB PO SCH ×2 (08:42→20:26)
[2019-11-07] MEDS: ENOXAPARIN 40 MG/0.4 ML SYRINGE (J1650) SC SCH (08:43)
[2019-11-07 08:51] LABS: HEMATOCRIT 43.2 % (36.0-47.0); HEMOGLOBIN 14.7 g/dl (12.0-15.5); MEAN CORPUSCULAR HEMOGLOBIN 30.9 pg (27.0-33.0); MEAN CORPUSCULAR VOLUME 90.8 fl (80.0-96.0); PLATELET COUNT, AUTOMATED 195 10^3/uL (150-450); RED BLOOD COUNT 4.76 10^6/uL (4.00-5.40); WHITE BLOOD COUNT 12.2 10^3/uL (4.0-10.0)
[2019-11-07] MEDS ORDERED: ENTER DRUG NAME HERE (PATIENT'S OWN MED) PO SCH (09:00)
[2019-11-07] MEDS ORDERED: ENTER DRUG NAME HERE (PATIENT'S OWN MED) INH SCH ×2 (09:00)
[2019-11-07 09:26] LABS: BLOOD UREA NITROGEN 8 MG/DL (7-18); CALCIUM LEVEL 8.9 MG/DL (8.5-10.1); CARBON DIOXIDE LEVEL 30 MEQ/L (21-32); CHLORIDE LEVEL 103 MEQ/L (98-107); CREATININE FOR GFR 0.56 MG/DL (0.55-1.30); GLOMERULAR FILTRATION RATE > 60.0 (>51); GLUCOSE, FASTING 182 MG/DL (70-100); POTASSIUM SERUM 3.2 MEQ/L (3.5-5.1); SODIUM LEVEL 141 MEQ/L (136-145)
[2019-11-07] MEDS: tiZANidine 4 MG TAB PO PRN (12:07)
[2019-11-07] MEDS ORDERED: POTASSIUM CHLORIDE 10 MEQ SR TABLET PO ONE (13:30)
[2019-11-07 14:32] VITALS: BP 97/63
[2019-11-07] MEDS: ACETAMINOPHEN TAB 650MG DOSE (2X325MG) PO PRN (15:14)
[2019-11-07] MEDS ORDERED: SODIUM CHLORIDE 0.9% 1000ML IV ONE (15:30)
[2019-11-07] MEDS: PIPERACILLIN/TAZOBACTAM SOD 3.375 GM in D5W MINI-BAG PLUS 50 ML IV SCH ×2 (16:26→22:26)
[2019-11-07] MEDS: NS 1,000 ML IV SCH (17:51)
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
[2019-11-07] MEDS: ATORVASTATIN 20 MG TAB PO SCH (20:26)
[2019-11-07] MEDS: metFORMIN (GLUCOPHAGE) 500 MG TAB PO SCH (20:28)
[2019-11-07 22:00] VITALS: BP 131/71
[2019-11-08] MEDS: PIPERACILLIN/TAZOBACTAM SOD 3.375 GM in D5W MINI-BAG PLUS 50 ML IV SCH ×4 (04:01→23:14)
[2019-11-08] MEDS ORDERED: BENZONATATE 100 MG CAP PO ONE (05:15)
[2019-11-08] MEDS ORDERED: ONDANSETRON 4MG/2ML VIAL (J2405) IV ONE (05:15)
[2019-11-08 05:52] VITALS: BP 130/67
[2019-11-08] MEDS ORDERED: VANCOMYCIN HCL 500 MG in D5W MINI-BAG PLUS 100 ML IV SCH (06:00)
[2019-11-08 07:08] LABS: ALBUMIN 2.8 GM/DL (3.2-5.2); ALT/SGPT 21 U/L (12-78); BILIRUBIN,TOTAL 1.3 MG/DL (0.2-1.0); BLOOD UREA NITROGEN 8 MG/DL (7-18); CALCIUM LEVEL 8.7 MG/DL (8.5-10.1); CARBON DIOXIDE LEVEL 23 MEQ/L (21-32); CHLORIDE LEVEL 104 MEQ/L (98-107); GLOMERULAR FILTRATION RATE > 60.0 (>51); GLUCOSE, FASTING 231 MG/DL (70-100); MAGNESIUM LEVEL 1.4 MG/DL (1.8-2.4); PHOSPHORUS LEVEL 2.1 MG/DL (2.5-4.9); POTASSIUM SERUM 2.8 MEQ/L (3.5-5.1); SODIUM LEVEL 135 MEQ/L (136-145); TOTAL PROTEIN 6.8 GM/DL (6.4-8.2)
[2019-11-08] MEDS: OMEPRAZOLE 20 MG CAP PO SCH (08:57)
[2019-11-08] MEDS: ASPIRIN 81 MG ENTERIC TAB PO SCH (08:57)
[2019-11-08] MEDS: BACLOFEN 10 MG TAB PO SCH ×3 (08:57→20:46)
[2019-11-08] MEDS: MONTELUKAST 10 MG TAB PO SCH (08:57)
[2019-11-08] MEDS: ESCITALOPRAM OXALATE 10 MG TAB (LEXAPRO) PO SCH (08:57)
[2019-11-08] MEDS: metFORMIN (GLUCOPHAGE) 500 MG TAB PO SCH ×2 (08:57→20:46)
[2019-11-08] MEDS: busPIRone 10 MG TAB PO SCH ×2 (08:57→20:46)
[2019-11-08] MEDS: ENOXAPARIN 40 MG/0.4 ML SYRINGE (J1650) SC SCH (08:57)
[2019-11-08] MEDS: OLANZapine 2.5MG TABLET PO SCH (08:57)
[2019-11-08] MEDS: glipiZIDE XL 5 MG TABCR PO SCH (08:58)
[2019-11-08] MEDS: MULTIVITAMINS/MINERALS THERAP 1 TAB PO SCH (08:58)
[2019-11-08] MEDS: CETIRIZINE (ZyrTEC) 10 MG TAB PO SCH (08:58)
[2019-11-08] MEDS: NS 1,000 ML IV SCH ×2 (08:59→18:33)
[2019-11-08] MEDS: CLOTRIMAZOLE 1% TOPICAL CREAM 30GM TOP SCH ×2 (08:59→20:47)
[2019-11-08] MEDS ORDERED: POTASSIUM CHLORIDE 10 MEQ SR TABLET PO ONE (10:00)
[2019-11-08] MEDS: TIOTROPIUM INHALER/CAPSULE (SPIRIVA) INH SCH (10:03)
[2019-11-08] MEDS: SYMBICORT 160/4.5MCG INHALER 6GM INH SCH ×2 (10:04→20:18)
[2019-11-08] MEDS: KCL 10MEQ/100ML SWI (KRUN) 10 MEQ in IV 1 EA IV SCH ×3 (10:15→12:55)
[2019-11-08] MEDS: MAG SULF 1GM/100ML (MAG RUN) 1 GM in IV 1 EA IV SCH ×5 (10:15→15:01)
[2019-11-08] MEDS ORDERED: POTASSIUM PHOSPHATE INJ 30 MMOL in D5W 500 ML IV ONE (13:00)
[2019-11-08 14:00] VITALS: BP_SYST 133; BP_SYST 150; BP_DIAS 80; BP_DIAS 90
[2019-11-08] MEDS: traMADol 50 MG TAB PO PRN (15:02)
[2019-11-08] MEDS: tiZANidine 4 MG TAB PO PRN (15:02)
[2019-11-08] MEDS: ACETAMINOPHEN TAB 650MG DOSE (2X325MG) PO PRN ×2 (16:54→23:26)
[2019-11-08] MEDS ORDERED: VANCOMYCIN HCL 1,000 MG, VIAL MATE ADAPTER 1 EACH in D5W 250 ML IV SCH (18:45)
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
--- NOTE | 2019-11-08 18:52 | REPVR ---
PROCEDURE INFORMATION: Exam: CT Abdomen And Pelvis Without Contrast Exam date and time: 11/08/2019 5:57 PM Age: 59 years old Clinical indication: Fever; Additional info: Febrile TECHNIQUE: Imaging protocol: Computed tomography of the abdomen and pelvis without contrast. Radiation optimization: All CT scans at this facility use at least one of these dose optimization techniques: automated exposure control; mA and/or kV adjustment per patient size (includes targeted exams where dose is matched to clinical indication); or iterative reconstruction. COMPARISON: CR Hip,AP,LAT to include Pelvis 08/02/2017 7:39 AM FINDINGS: Lungs: Bibasilar atelectasis. Heart: Small pericardial effusion/pericardial thickening. Liver: There is a diffuse decrease in hepatic parenchymal density, consistent with steatosis. Hepatomegaly. Gallbladder and bile ducts: Normal. No calcified stones. No ductal dilation. Pancreas: Normal. No ductal dilation. Spleen: There is mild splenomegaly with a maximum span of 14.5 centimeters. No focal abnormalities demonstrated. Adrenals: There is bilateral adrenal hyperplasia. Kidneys and ureters: Punctate nonobstructive renal calculi. Left perinephric stranding. Clinical correlation to exclude pyelonephritis suggested. Stomach and bowel: Unremarkable. No obstruction. No mucosal thickening. Appendix: No evidence of appendicitis. Intraperitoneal space: Unremarkable. No free air. No significant fluid collection. Vasculature: The aorta demonstrates mild atherosclerotic calcification. Lymph nodes: Unremarkable. No enlarged lymph nodes. Bladder: Unremarkable as visualized. Reproductive: There has been a hysterectomy. Bones/joints: Compression fractures at L3 and L4, severe at L3, redemonstrated. Retropulsion of fracture elements from the fractures results in a severe central spinal stenosis at L3-L4. Soft tissues: Unremarkable. Other findings: Osteoporosis. IMPRESSION: 1. There is a diffuse decrease in hepatic parenchymal density, consistent with steatosis. Hepatomegaly. 2. There is mild splenomegaly with a maximum span of 14.5 centimeters. No focal abnormalities demonstrated. 3. There is bilateral adrenal hyperplasia. No follow-up necessary. 4. Left perinephric stranding. Clinical correlation to exclude pyelonephritis suggested. 5. There has been a hysterectomy. Electronically signed by: Manish Motta On 11/08/2019 18:52:34 PM
--- NOTE | 2019-11-08 18:57 | REPVR ---
PROCEDURE INFORMATION: Exam: CT Chest Without Contrast Exam date and time: 11/08/2019 5:57 PM Age: 59 years old Clinical indication: Fever; Additional info: Febrile TECHNIQUE: Imaging protocol: Computed tomography of the chest without contrast. Radiation optimization: All CT scans at this facility use at least one of these dose optimization techniques: automated exposure control; mA and/or kV adjustment per patient size (includes targeted exams where dose is matched to clinical indication); or iterative reconstruction. COMPARISON: CR Chest, 2 view PA, Lat 07/11/2018 4:07 PM FINDINGS: Lungs: Bibasilar atelectasis. Dense airspace infiltrate demonstrated in the right upper lobe measuring the 5.1 x 7.8 x 5 cm with central air locules. Differential diagnosis includes a cavitating pneumonitis versus neoplasm. Calcified granuloma lingular lobe. Pleural space: Unremarkable. No pneumothorax. No pleural effusion. Heart: Unremarkable. No cardiomegaly. No pericardial effusion. Pulmonary arteries: There is enlargement of the central pulmonary arteries, findings which can be associated with pulmonary arterial hypertension which should be correlated clinically. Aorta: There is fusiform dilatation of the ascending thoracic aorta which measures 4.1 cm. maximally. There is no dissection or saccular component. Lymph nodes: Unremarkable. No enlarged lymph nodes. Bones/joints: The spine demonstrates moderate degenerative changes. Osteoporosis. Soft tissues: Unremarkable. IMPRESSION: 1. There is fusiform dilatation of the ascending thoracic aorta which measures 4.1 cm. maximally. There is no dissection or saccular component. 2. There is enlargement of the central pulmonary arteries, findings which can be associated with pulmonary arterial hypertension which should be correlated clinically. Electronically signed by: Manish Motta On 11/08/2019 18:57:15 PM
[2019-11-08] MEDS: VANCOMYCIN HCL 1,000 MG, VIAL MATE ADAPTER 1 EACH in D5W 250 ML IV SCH ×2 (20:01→21:44)
[2019-11-08] MEDS: ATORVASTATIN 20 MG TAB PO SCH (20:46)
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
[2019-11-08 22:00] VITALS: BP 103/65
[2019-11-09] MEDS: PIPERACILLIN/TAZOBACTAM SOD 3.375 GM in D5W MINI-BAG PLUS 50 ML IV SCH ×2 (04:01→09:37)
[2019-11-09] MEDS: ACETAMINOPHEN TAB 650MG DOSE (2X325MG) PO PRN ×2 (04:01→08:03)
[2019-11-09] MEDS: traMADol 50 MG TAB PO PRN (05:16)
[2019-11-09] MEDS: VANCOMYCIN HCL 1,000 MG, VIAL MATE ADAPTER 1 EACH in D5W 250 ML IV SCH ×2 (05:17→13:00)
[2019-11-09 06:00] VITALS: BP 109/50
[2019-11-09] MEDS: VANCOMYCIN HCL 500 MG in D5W MINI-BAG PLUS 100 ML IV SCH ×2 (06:00→13:33)
[2019-11-09 07:29] LABS: ALBUMIN 2.3 GM/DL (3.2-5.2); ALT/SGPT 15 U/L (12-78); BLOOD UREA NITROGEN 8 MG/DL (7-18); CALCIUM LEVEL 8.1 MG/DL (8.5-10.1); CARBON DIOXIDE LEVEL 24 MEQ/L (21-32); CHLORIDE LEVEL 102 MEQ/L (98-107); CREATININE FOR GFR 0.49 MG/DL (0.55-1.30); GLOMERULAR FILTRATION RATE > 60.0 (>51); GLUCOSE, FASTING 207 MG/DL (70-100); MAGNESIUM LEVEL 2.2 MG/DL (1.8-2.4); PHOSPHORUS LEVEL 2.1 MG/DL (2.5-4.9); POTASSIUM SERUM 3.1 MEQ/L (3.5-5.1); SODIUM LEVEL 133 MEQ/L (136-145); TOTAL PROTEIN 6.3 GM/DL (6.4-8.2)
[2019-11-09] MEDS: NS 1,000 ML IV SCH ×2 (07:58→08:05)
[2019-11-09] MEDS: ASPIRIN 81 MG ENTERIC TAB PO SCH (08:03)
[2019-11-09] MEDS: OMEPRAZOLE 20 MG CAP PO SCH (08:03)
[2019-11-09] MEDS: OLANZapine 2.5MG TABLET PO SCH (08:03)
[2019-11-09] MEDS: metFORMIN (GLUCOPHAGE) 500 MG TAB PO SCH (08:03)
[2019-11-09] MEDS: ESCITALOPRAM OXALATE 10 MG TAB (LEXAPRO) PO SCH (08:03)
[2019-11-09] MEDS: CETIRIZINE (ZyrTEC) 10 MG TAB PO SCH (08:03)
[2019-11-09] MEDS: busPIRone 10 MG TAB PO SCH (08:03)
[2019-11-09] MEDS: glipiZIDE XL 5 MG TABCR PO SCH (08:04)
[2019-11-09] MEDS: ENOXAPARIN 40 MG/0.4 ML SYRINGE (J1650) SC SCH (08:04)
[2019-11-09] MEDS: MULTIVITAMINS/MINERALS THERAP 1 TAB PO SCH (08:04)
[2019-11-09] MEDS: BACLOFEN 10 MG TAB PO SCH (08:04)
[2019-11-09] MEDS: MONTELUKAST 10 MG TAB PO SCH (08:04)
[2019-11-09] MEDS: tiZANidine 4 MG TAB PO PRN (08:04)
[2019-11-09] MEDS: TIOTROPIUM INHALER/CAPSULE (SPIRIVA) INH SCH (08:23)
[2019-11-09] MEDS: SYMBICORT 160/4.5MCG INHALER 6GM INH SCH (08:23)
[2019-11-09] MEDS: CLOTRIMAZOLE 1% TOPICAL CREAM 30GM TOP SCH (09:00)
[2019-11-09] MEDS ORDERED: CEFD1CAP8 PO (11:42)
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
== END 2019-11-09 14:30 | disposition left against medical advice (07) | DRG 551 ==
LOC: M ED 16:21 → EEVIPCON 16:21 → M ED INP 21:03 → ENRESERV 21:51 → M MS5PR 22:25
PROVIDERS: ADMIT Internal Medicine; ATTEND Internal Medicine
DX: S32.030A Wedge compression fracture of third lumbar vertebra, initial encounter for closed fracture (principal); J18.9 Pneumonia, unspecified organism; S32.040A Wedge compression fracture of fourth lumbar vertebra, initial encounter for closed fracture; Y04.8XXA Assault by other bodily force, initial encounter; M48.061 Spinal stenosis, lumbar region without neurogenic claudication; J44.9 Chronic obstructive pulmonary disease, unspecified; E11.9 Type 2 diabetes mellitus without complications; I25.10 Atherosclerotic heart disease of native coronary artery without angina pectoris; I25.2 Old myocardial infarction; E78.5 Hyperlipidemia, unspecified; B99.9 Unspecified infectious disease; F43.12 Post-traumatic stress disorder, chronic; F31.9 Bipolar disorder, unspecified; F41.9 Anxiety disorder, unspecified; G43.909 Migraine, unspecified, not intractable, without status migrainosus; M81.0 Age-related osteoporosis without current pathological fracture; Z90.79 Acquired absence of other genital organ(s); E66.9 Obesity, unspecified; Z68.35 Body mass index [BMI] 35.0-35.9, adult; Z89.429 Acquired absence of other toe(s), unspecified side; Z87.81 Personal history of (healed) traumatic fracture; D72.829 Elevated white blood cell count, unspecified; E87.5 Hyperkalemia; Z79.82 Long term (current) use of aspirin; Z79.84 Long term (current) use of oral hypoglycemic drugs; Z79.899 Other long term (current) drug therapy; Z91.041 Radiographic dye allergy status; Z91.013 Allergy to seafood; Z91.011 Allergy to milk products; Z91.02 Food additives allergy status; R53.1 Weakness; R26.81 Unsteadiness on feet; Y92.89 Other specified places as the place of occurrence of the external cause

== ENCOUNTER 2020-01-04 05:44 | Day surgery (SDC) | payer MEDICARE, MEDICAID ==
[~2020-01-04] VITALS: Ht 157.5 cm; Wt 100.2 kg
[~2020-01-04 05:44] MED LIST changes: +ASPI-161 PO; +ATOR40TA75 PO; +BACL10TA2 PO; +BUSP10TA PO; +CEFD1CAP8 PO; +CETI10TA4 PO; +CLOT1CRE27 TOP; +DICL75TA; +DICL75TA PO; +ECOT81TA5 PO; +ESCI20TA PO; +FURO20TA2 PO; +GLIP5TAB20 PO; +HYDR50TA70 PO; +INCR1INH INH; +LYRI150C PO; +METF500T13 PO; +MONT10TA4 PO; +NYST50SS SSP; +OLAN7.5T PO; +OMEP1CAP73 PO; +SPIR-10 PO; +TERB250T12 PO; +TIZA4TAB4 PO; +TYLE650T35 PO; +VITMTA PO
[2020-01-04] MEDS ORDERED: LIDOCAINE 1% MDV 20ML VIAL SQ PRN (06:00)
[2020-01-04] MEDS ORDERED: LR 1,000 ML IV ONE (06:00)
[2020-01-04] MEDS ORDERED: EMLA CREAM 5GM (LIDOCAINE/PRILOCAINE) TOP ONE (06:00)
[2020-01-04] MEDS ORDERED: ceFAZolin SOD 2 GM in IV 1 EA IV ONE (06:00)
[2020-01-04 06:14] LABS: HEMATOCRIT 44.9 % (36.0-47.0); HEMOGLOBIN 14.8 g/dl (12.0-15.5); MEAN CORPUSCULAR HEMOGLOBIN 29.3 pg (27.0-33.0); MEAN CORPUSCULAR VOLUME 88.9 fl (80.0-96.0); PLATELET COUNT, AUTOMATED 252 10^3/uL (150-450); RED BLOOD COUNT 5.05 10^6/uL (4.00-5.40); WHITE BLOOD COUNT 8.1 10^3/uL (4.0-10.0)
[2020-01-04] MEDS ORDERED: ONDANSETRON 4MG/2ML VIAL (J2405) As Ordered ONE (07:20)
[2020-01-04] MEDS ORDERED: fentaNYL 100 MCG/2 ML INJECTION (J3010) As Ordered ONE ×2 (07:20→09:02)
[2020-01-04] MEDS ORDERED: LIDOCAINE 2% INJ 100 MG/5 ML SDV (FOR ANES.) As Ordered ONE (07:20)
[2020-01-04] MEDS ORDERED: propofoL 200 MG/20 ML VIAL As Ordered ONE (07:20)
[2020-01-04] MEDS ORDERED: HumaLOG INSULIN (NovoLOG) PER UNIT As Ordered ONE (07:20)
[2020-01-04] MEDS ORDERED: dexameTHASONE 4 MG/ML 1ML VIAL (J1100 PER 1MG) As Ordered ONE (07:20)
[2020-01-04] MEDS ORDERED: MIDAZOLAM INJ 2 MG/2 ML VIAL (J2250) As Ordered ONE (07:20)
[2020-01-04] MEDS ORDERED: HumaLOG INSULIN (NovoLOG) PER UNIT SC ONE (07:30)
[2020-01-04] MEDS ORDERED: LIDOCAINE W/EPINEPHRINE 1% 20ML VIAL As Ordered ONE (08:04)
[2020-01-04] MEDS ORDERED: ROCURONIUM BROMIDE 50 MG/5 ML VIAL As Ordered ONE (08:15)
[2020-01-04] MEDS ORDERED: ACETAMINOPHEN 1000MG 100ML IV BTL (OFIRMEV) (J0131 PER 10MG) As Ordered ONE (08:15)
[2020-01-04] MEDS ORDERED: SUGAMMADEX SODIUM 500 MG/5 ML VIAL (BRIDION) As Ordered ONE (08:18)
[2020-01-04] MEDS ORDERED: ESTROGENS VAGINAL CREAM 30GM As Ordered ONE (08:27)
[2020-01-04] MEDS ORDERED: OXYC1TAB23 PO (08:47)
[2020-01-04] MEDS ORDERED: DIBU10OI TOP (08:49)
[2020-01-04] MEDS ORDERED: COLA100C5 PO (08:50)
[2020-01-04] MEDS ORDERED: IBUP-1022 PO (08:51)
[2020-01-04] MEDS ORDERED: PERCOCET 5MG/325MG TAB As Ordered ONE (09:02)
[2020-01-04] MEDS ORDERED: LR 1,000 ML IV SCH ×2 (09:15)
[2020-01-04] MEDS ORDERED: MEPERIDINE INJ 25 MG/ML VIAL (J2175) IV PRN (09:15)
[2020-01-04] MEDS ORDERED: ONDANSETRON 4MG/2ML VIAL (J2405) IV PRN (09:15)
[2020-01-04] MEDS ORDERED: PERCOCET 5MG/325MG TAB PO PRN (09:15)
[2020-01-04] MEDS ORDERED: fentaNYL 100 MCG/2 ML INJECTION (J3010) IV PRN (09:15)
[2020-01-04 10:15] VITALS: BP 146/90
[2020-01-04 10:45] VITALS: BP 135/86
[2020-01-04] MEDS ORDERED: ALBUTEROL 90 MCG/ACT 8GM HFA INHALER INH PRN (11:30)
[2020-01-04] MEDS ORDERED: DIBUCAINE 1% OINTMENT 30GM TOP PRN (11:30)
[2020-01-04] MEDS ORDERED: tiZANidine 4 MG TAB PO PRN (11:30)
[2020-01-04] MEDS ORDERED: hydrOXYzine 50 MG TAB PO PRN (11:30)
[2020-01-04] MEDS ORDERED: traMADol 50 MG TAB PO PRN (11:30)
[2020-01-04] MEDS ORDERED: ONDANSETRON 4 MG TAB (S0181) PO PRN (11:30)
[2020-01-04 11:45] VITALS: BP 134/86
[2020-01-04] MEDS ORDERED: RIZA10TA58 PO (12:23)
[2020-01-04 12:45] VITALS: BP 125/79
[2020-01-04 13:45] VITALS: BP 97/63
[2020-01-04] MEDS ORDERED: metFORMIN (GLUCOPHAGE) 500 MG TAB PO SCH (18:00)
[2020-01-04] MEDS ORDERED: ATORVASTATIN 20 MG TAB PO SCH (21:00)
[2020-01-05] MEDS ORDERED: OLANZapine 2.5MG TABLET PO SCH (09:00)
[2020-01-05] MEDS ORDERED: OMEPRAZOLE 20 MG CAP PO SCH (09:00)
[2020-01-05] MEDS ORDERED: ESCITALOPRAM OXALATE 10 MG TAB (LEXAPRO) PO SCH (09:00)
[2020-01-05] MEDS ORDERED: CETIRIZINE (ZyrTEC) 10 MG TAB PO SCH (09:00)
== END 2020-01-04 16:45 | disposition home health service (06) ==
LOC: M SDC 05:44 → M MS5PR 10:15 → M SDC 16:45
PROVIDERS: ATTEND Obstetrics & Gynecology
DX: D07.1 Carcinoma in situ of vulva (principal); J44.9 Chronic obstructive pulmonary disease, unspecified; E66.01 Morbid (severe) obesity due to excess calories; E11.65 Type 2 diabetes mellitus with hyperglycemia; K21.9 Gastro-esophageal reflux disease without esophagitis; E78.1 Pure hyperglyceridemia; F17.218 Nicotine dependence, cigarettes, with other nicotine-induced disorders; Z79.82 Long term (current) use of aspirin; F31.9 Bipolar disorder, unspecified; F43.10 Post-traumatic stress disorder, unspecified; Z99.3 Dependence on wheelchair; Z91.041 Radiographic dye allergy status; Z91.011 Allergy to milk products; Z91.013 Allergy to seafood; Z91.02 Food additives allergy status; Z91.018 Allergy to other foods
CPT/HCPCS: 11623; 36415; 85027; 86850; 86870; 86900; 86901; 88304; J0131; J0690; J1100; J2250; J2405; J3010

== ENCOUNTER → 2020-02-27 | Outpatient (REF) | payer MEDICARE, MEDICAID ==
[~2020-02-27] MED LIST changes: +COLA100C5 PO; +DIBU10OI TOP; +IBUP-1022 PO; +OXYC1TAB23 PO; +RIZA10TA58 PO
== END ==
LOC: M SFHCWAGY 16:28
PROVIDERS: ATTEND Obstetrics & Gynecology
DX: N90.89 Other specified noninflammatory disorders of vulva and perineum (principal)

== ENCOUNTER → 2020-05-20 | Outpatient (REF) | payer MEDICARE, MEDICAID ==
[~2020-05-20] MED LIST changes: +ACET650T61 PO; -TAB-TAB; +TAB-TAB2; -TYLE650T35 PO
[2020-07-08 10:54] LABS: HEMATOCRIT 43.8 % (36.0-47.0); HEMOGLOBIN 14.5 g/dl (12.0-15.5); MEAN CORPUSCULAR HEMOGLOBIN 29.4 pg (27.0-33.0); MEAN CORPUSCULAR HGB CONC 33.1 g/dl (32.0-36.5); MEAN CORPUSCULAR VOLUME 88.8 fl (80.0-96.0); PLATELET COUNT, AUTOMATED 274 10^3/uL (150-450); RED BLOOD COUNT 4.93 10^6/uL (4.00-5.40); WHITE BLOOD COUNT 8.1 10^3/uL (4.0-10.0)
[2020-07-16 14:12] LABS: ALBUMIN 4.4 GM/DL (3.2-5.2); ALT/SGPT 26 U/L (12-78); BILIRUBIN,TOTAL 0.5 MG/DL (0.2-1.0); BLOOD UREA NITROGEN 18 MG/DL (7-18); CALCIUM LEVEL 9.3 MG/DL (8.5-10.1); CARBON DIOXIDE LEVEL 27 MEQ/L (21-32); CHLORIDE LEVEL 105 MEQ/L (98-107); CHOLESTEROL LEVEL 192 MG/DL (<200); CHOLESTEROL RISK RATIO 5.647 (<5); GLOMERULAR FILTRATION RATE > 60.0 (>51); GLUCOSE, FASTING 98 MG/DL (70-100); HDL CHOLESTEROL 34 MG/DL (>40); NON-HDL-C 158 MG/DL; POTASSIUM SERUM 3.9 MEQ/L (3.5-5.1); SODIUM LEVEL 138 MEQ/L (136-145); TOTAL PROTEIN 7.8 GM/DL (6.4-8.2); TRIGLYCERIDES LEVEL 408 MG/DL (<150)
[2020-07-16 14:13] LABS: HEMOGLOBIN A1c 6.6 %
== END ==
LOC: M SFHCPLAZ 11:27
PROVIDERS: ATTEND Nurse Practitioner Adult Health
DX: E78.1 Pure hyperglyceridemia (principal); E11.65 Type 2 diabetes mellitus with hyperglycemia

== ENCOUNTER 2020-10-03 21:10 | Inpatient (IN) | payer MEDICARE, MEDICAID ==
[~2020-10-03] VITALS: Ht 152.4 cm; Wt 118.2 kg
[~2020-10-03 21:10] MED LIST changes: -MONT10TA4; -MONT10TA4 PO; +MONT5TAB2; +MONT5TAB2 PO
[2020-10-03] MEDS ORDERED: NS 1,000 ML IV ONE (22:15)
[2020-10-03] MEDS ORDERED: KETOROLAC 30 MG/ML 1ML VIAL IV ONE (22:15)
[2020-10-03 22:23] LABS: BASO % 0.2 % (0.0-1.0); EOS # 0.1 10^3/uL (0.0-0.5); EOS % 1.7 % (0.0-3.0); HEMATOCRIT 34.4 % (36.0-47.0); HEMOGLOBIN 11.2 g/dl (12.0-15.5); LYMPH # 1.9 10^3/uL (1.5-5.0); LYMPH % 30.1 % (24.0-44.0); MEAN CORPUSCULAR HEMOGLOBIN 28.5 pg (27.0-33.0); MEAN CORPUSCULAR HGB CONC 32.6 g/dl (32.0-36.5); MEAN CORPUSCULAR VOLUME 87.5 fl (80.0-96.0); MONO # 0.5 10^3/uL (0.0-0.8); MONO % 8.4 % (0.0-5.0); NEUTROPHILS # 3.8 10^3/uL (1.5-8.5); PLATELET COUNT, AUTOMATED 290 10^3/uL (150-450); RED BLOOD COUNT 3.93 10^6/uL (4.00-5.40); WHITE BLOOD COUNT 6.4 10^3/uL (4.0-10.0)
[2020-10-03 22:55] LABS: ACETAMINOPHEN LEVEL < 2.0 UG/ML (10.0-30.0); ALBUMIN 3.2 GM/DL (3.2-5.2); ALT/SGPT 15 U/L (12-78); BILIRUBIN,DIRECT 0.2 MG/DL (0.0-0.2); BILIRUBIN,TOTAL 0.5 MG/DL (0.2-1.0); BLOOD UREA NITROGEN 26 MG/DL (7-18); CALCIUM LEVEL 8.1 MG/DL (8.5-10.1); CARBON DIOXIDE LEVEL 24 MEQ/L (21-32); CHLORIDE LEVEL 105 MEQ/L (98-107); CK-MB VALUE MASS < 1.0 NG/ML (<3.6); CPK CREATINE PHOSPHOKINASE 40 U/L (26-192); CREATININE FOR GFR 0.84 MG/DL (0.55-1.30); ETHYL ALCOHOL (ETHANOL) < 0.003 % (0.000-0.010); GLOMERULAR FILTRATION RATE > 60.0 (>51); GLUCOSE, FASTING 109 MG/DL (70-100); LIPASE 57 U/L (73-393); POTASSIUM SERUM 2.8 MEQ/L (3.5-5.1); SODIUM LEVEL 138 MEQ/L (136-145); TOTAL PROTEIN 6.6 GM/DL (6.4-8.2); TROPONIN I < 0.02 NG/ML (< 0.10)
[2020-10-03 23:08] LABS: RSV AMPLIFICATION NEGATIVE (NEGATIVE)
[2020-10-03] MEDS ORDERED: POTASSIUM CHLORIDE 10 MEQ SR TABLET PO ONE (23:45)
[2020-10-03 23:55] LABS: MAGNESIUM LEVEL 1.6 MG/DL (1.8-2.4)
[2020-10-04] LABS: D-DIMER QUANT 1484.92 ng/ml (<500)
[2020-10-04 00:07] LABS: C REACTIVE PROTEIN QUANTITATIV 3.82 MG/DL (0.00-0.30); FERRITIN 139 NG/ML (8-252); LDH LACTATE DEHYDROGENASE 176 U/L (84-246)
--- NOTE | 2020-10-04 00:25 | REPVR ---
PROCEDURE INFORMATION: Exam: CT Head Without Contrast Exam date and time: 10/03/2020 10:21 PM Age: 60 years old Clinical indication: Injury or trauma; Fall; Concussion/head injury; Consciousness not specified; Additional info: Fall, delusions TECHNIQUE: Imaging protocol: Computed tomography of the head without contrast. Radiation optimization: All CT scans at this facility use at least one of these dose optimization techniques: automated exposure control; mA and/or kV adjustment per patient size (includes targeted exams where dose is matched to clinical indication); or iterative reconstruction. COMPARISON: CT Head without contrast 11/06/2019 7:19 PM FINDINGS: Brain: There is no evidence of intracranial hemorrhage. No mass effect or midline shift is seen. Beltran-white differentiation is preserved throughout. There are global involutional changes of the brain which are in keeping with the patient's age. Periventricular hypodensities are nonspecific but most likely reflect chronic microvascular ischemic disease. Cerebral ventricles: No hydrocephalus. Bones/joints: Benign hyperostosis frontalis is present. No calvarial fracture. Paranasal sinuses: The visualized sinuses are unremarkable. Mastoid air cells: There is no mastoid effusion detected. Soft tissues: Unremarkable. IMPRESSION: No acute intracranial pathology demonstrated by CT. Electronically signed by: Jenae Way On 10/04/2020 00:26:03 AM
--- NOTE | 2020-10-04 00:38 | REPVR ---
PROCEDURE INFORMATION: Exam: XR Chest, 1 View Exam date and time: 10/03/2020 12:26 AM Age: 60 years old Clinical indication: Shortness of breath; Additional info: Covid, weakness TECHNIQUE: Imaging protocol: XR of the chest Views: 1 view. COMPARISON: CT Chest without contrast 11/08/2019 5:51 PM FINDINGS: Lungs: There is no pulmonary vascular congestion. There is no evidence of focal parenchymal consolidation. Pleural space: There are no pleural effusions. There is no evidence of pneumothorax. Heart/Mediastinum: The cardiac silhouette is within normal limits. Bones/joints: No acute osseous abnormality is identified. IMPRESSION: No acute cardiopulmonary disease identified. Electronically signed by: Jenae Way On 10/04/2020 00:38:42 AM
--- NOTE | 2020-10-04 00:42 | REPVR ---
PROCEDURE INFORMATION: Exam: XR Right Femur Exam date and time: 10/03/2020 12:26 AM Age: 60 years old Clinical indication: Injury or trauma; Fall; Sprain or strain; Thigh or upper leg; Right; Additional info: Fall, known fracture TECHNIQUE: Imaging protocol: XR Right femur. Views: 2 views. COMPARISON: CR Femur 02/21/2016 1:03 PM FINDINGS: Bones/joints: Right knee arthroplasty. Lucency surrounding bone cement of femoral medullary stem is again noted, indicating loosening or other hardware related complication. Cortical fracture lines are seen anteriorly and posteriorly adjacent to the femoral medullary prosthetic stem. No acute hip fracture is identified. No hip dislocation. Soft tissues: Unremarkable. IMPRESSION: Re-identified femoral diaphyseal fracture at the level of the femoral medullary prosthetic stem. Electronically signed by: Jenae Way On 10/04/2020 00:42:32 AM
[2020-10-04] MEDS ORDERED: MAG SULF 1GM/100ML (MAG RUN) 1 GM in IV 1 EA IV ONE (02:00)
[2020-10-04] MEDS ORDERED: NS 1,000 ML IV SCH (02:15)
[2020-10-04] MEDS ORDERED: IBUP80TA PO (02:22)
[2020-10-04] MEDS ORDERED: BACL10TA2 PO (02:22)
[2020-10-04] MEDS ORDERED: SPIR-10 PO (02:22)
[2020-10-04] MEDS ORDERED: med rec comment (02:24)
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
[2020-10-04] MEDS ORDERED: hydrOXYzine 50 MG TAB PO PRN (03:45)
[2020-10-04] MEDS ORDERED: traMADol 50 MG TAB PO PRN ×2 (03:45→16:00)
[2020-10-04] MEDS ORDERED: BACLOFEN 10 MG TAB PO PRN (03:45)
[2020-10-04] MEDS ORDERED: tiZANidine 4 MG TAB PO PRN (03:45)
[2020-10-04] MEDS ORDERED: RIZATRIPTAN MLT 10 MG TAB PO PRN (03:45)
[2020-10-04] MEDS ORDERED: ALBUTEROL 90 MCG/ACT 8GM HFA INHALER INH PRN (03:45)
[2020-10-04] MEDS ORDERED: GLUCOSE 4GM CHEW TABLET PO PRN (04:00)
[2020-10-04] MEDS: KCL 10MEQ/100ML SWI (KRUN) 10 MEQ in IV 1 EA IV SCH ×4 (04:00→09:00)
[2020-10-04] MEDS ORDERED: DEXTROSE 50% 50 ML SYRINGE IV PRN ×2 (04:00→08:45)
[2020-10-04] MEDS ORDERED: GLUCAGON INJ 1MG VIAL SC PRN (04:00)
[2020-10-04 06:25] VITALS: BP 102/51
[2020-10-04 08:00] VITALS: BP 131/63; O2SAT 96
[2020-10-04 08:15] LABS: BASO % 0.4 % (0.0-1.0); EOS # 0.1 10^3/uL (0.0-0.5); HEMATOCRIT 34.2 % (36.0-47.0); HEMOGLOBIN 11.1 g/dl (12.0-15.5); LYMPH # 1.4 10^3/uL (1.5-5.0); MEAN CORPUSCULAR HEMOGLOBIN 28.4 pg (27.0-33.0); MEAN CORPUSCULAR HGB CONC 32.5 g/dl (32.0-36.5); MEAN CORPUSCULAR VOLUME 87.5 fl (80.0-96.0); MONO # 0.4 10^3/uL (0.0-0.8); MONO % 7.1 % (0.0-5.0); NEUTROPHILS % 60.5 % (36.0-66.0); PLATELET COUNT, AUTOMATED 308 10^3/uL (150-450); RED BLOOD COUNT 3.91 10^6/uL (4.00-5.40); WHITE BLOOD COUNT 4.9 10^3/uL (4.0-10.0)
[2020-10-04 08:44] LABS: ALT/SGPT 14 U/L (12-78); BILIRUBIN,TOTAL 0.6 MG/DL (0.2-1.0); BLOOD UREA NITROGEN 17 MG/DL (7-18); C REACTIVE PROTEIN QUANTITATIV 3.23 MG/DL (0.00-0.30); CALCIUM LEVEL 8.3 MG/DL (8.5-10.1); CARBON DIOXIDE LEVEL 25 MEQ/L (21-32); CHLORIDE LEVEL 109 MEQ/L (98-107); CK-MB VALUE MASS < 1.0 NG/ML (<3.6); CPK CREATINE PHOSPHOKINASE 40 U/L (26-192); FERRITIN 142 NG/ML (8-252); GLOMERULAR FILTRATION RATE > 60.0 (>51); GLUCOSE, FASTING 108 MG/DL (70-100); LDH LACTATE DEHYDROGENASE 211 U/L (84-246); NT-PRO BNP 142 PG/ML (<125); POTASSIUM SERUM 3.2 MEQ/L (3.5-5.1); SODIUM LEVEL 141 MEQ/L (136-145); TOTAL PROTEIN 6.4 GM/DL (6.4-8.2); TRIGLYCERIDES LEVEL 199 MG/DL (<150); TROPONIN I < 0.02 NG/ML (< 0.10)
[2020-10-04] MEDS: busPIRone 10 MG TAB PO SCH (09:01)
[2020-10-04] MEDS: ESCITALOPRAM OXALATE 10 MG TAB (LEXAPRO) PO SCH (09:02)
[2020-10-04] MEDS: PREGABALIN 75 MG CAP(LYRICA) PO SCH ×2 (09:02→21:14)
[2020-10-04] MEDS: CETIRIZINE (ZyrTEC) 10 MG TAB PO SCH (09:02)
[2020-10-04] MEDS: OMEPRAZOLE 20 MG CAP PO SCH (09:02)
[2020-10-04] MEDS: ASPIRIN 81 MG ENTERIC TAB PO SCH (09:02)
[2020-10-04] MEDS: ENOXAPARIN 40MG/0.4ML SYRINGE (J1650 PER 10MG) SC SCH (09:03)
[2020-10-04] MEDS: HumaLOG INSULIN (NovoLOG) PER UNIT SC SCH ×4 (09:03→20:54)
[2020-10-04 09:20] LABS: INR 1.04; PROTHROMBIN TIME 13.8 SECONDS (12.5-14.3)
[2020-10-04 09:21] LABS: PARTIAL THROMBOPLASTIN TIME 29.8 SECONDS (24.2-38.5)
[2020-10-04 09:24] LABS: D-DIMER QUANT 1508.87 ng/ml (<500)
--- NOTE | 2020-10-04 09:26 | ECGEPIP ---
[facility] - ED Test Date: 2020-10-03 Pat Name: DAVID CRUZ Department: Room: [place] [address] Gender: Female Cinder Snapper: alvaro : 1960 Requested By: GLORIA Mcgarry Order Number: [id number] Reading MD: Yessenia Mcgill Measurements Intervals [place] Rate: 62 P: HI: 0 QRS: 60 QRSD: 93 T: 74 QT: 426 QTc: 435 Interpretive Statements SUPRAVENTRICULAR RHYTHM POSSIBLE INFERIOR MYOCARDIAL INFARCTION, PROBABLY OLD WITH POSTERIOR EXTENSION Electronically Signed on 10-04-2020 9:26:39 EST by Yessenia Mcgill
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
[2020-10-04] MEDS: ADVAIR HFA 115/21MCG INHALER INH SCH ×2 (11:30→20:48)
[2020-10-04] MEDS: POTASSIUM CHLORIDE 10 MEQ SR TABLET PO SCH ×3 (11:38→21:14)
[2020-10-04 12:00] VITALS: O2SAT 95
--- NOTE | 2020-10-04 12:22 | REP ---
INDICATION: abnl xray COMPARISON: 09/15/2020 TECHNIQUE: AP, lateral views of the right tibia/fibula. FINDINGS: Patient is status post knee replacement which remains stable compared to prior examination. Degenerative changes involving the patella and tibia/fibula including suspected old infarction in the distal tibial metaphysis remains stable. Lateral view demonstrates significant calcifications related to the patella suggesting old injury and elements of myositis ossificans. No evidence for acute fracture or dislocation. IMPRESSION: Knee replacement, degenerative changes, and posttraumatic changes status quo. No obvious acute fracture or dislocation. <Electronically signed by Bonifacio Chin > 10/04/20 [id number]
--- NOTE | 2020-10-04 12:26 | REP ---
INDICATION: abnl xray COMPARISON: 04/30/2018, 09/15/2020 TECHNIQUE: AP, lateral, bilateral oblique views of the right knee. FINDINGS: Chronic changes include partial resection to the distal femur with stable knee replacement and heterotopic ossification along the distal femur and patella. Old patellar fracture is again noted. Proximal tibia and tibial component to the replacement appears stable. No obvious acute fracture or dislocation. IMPRESSION: Chronic changes appear relatively stable. No obvious acute process. <Electronically signed by Bonifacio Chin > 10/04/20 [id number]
--- NOTE | 2020-10-04 12:30 | CR ---
CONSULTATION DATE: 10/04/2020 TIME: 9 a.m. SERVICE CONSULTED: Orthopedic Surgery. SURGEON CONSULTED: Eric Jarquin MD HISTORY OF PRESENT ILLNESS: This is a 60-year-old female with suspected right distal femur megaprosthesis implant loosening with a breach of the medial diaphyseal femoral cortices abutting the adjacent megaprosthesis stem. This is either septic or aseptic. However, at this point in time, we are continuing to work the patient up regarding the septic versus aseptic megaprosthesis, femoral stem loosening. This patient was admitted for positive COVID status. The patient has a history of COPD, now on home O2, type 2 diabetes, epilepsy, depression, schizophrenia, bipolar, PTSD, a myocardial infarction 10 years prior, GERD, history of lumbar fracture without intervention, previous femur fracture, previous patellar fracture, total knee megaprosthesis arthroscopy secondary to a distal femur fracture two years prior by a [place] surgeon, arthroplasty specialist. The patient was admitted secondary to a fall two days prior and two times while being hospitalized. The patient denies any preceding auditory, visual or olfactory aura, dizziness, loss of consciousness or loss of vision. The patient was able to brace her falls each of the times that she fell. She denies head trauma. The patient reports weakness as a reason for her falls. She got a flu short four days prior and developed fevers, chills and nonbloody diarrhea for the previous two days. The patient presented in the ED for the aforementioned complaints and was tested for COVID-19 of which she was positive. PAST MEDICAL HISTORY: 1. COPD. 2. Type 2 diabetes. 3. Epilepsy. 4. Depression. 5. Schizophrenia. 6. Bipolar. 7. Acute venous disease. 8. Myocardial infarction. PAST SURGICAL HISTORY: 1. Hysterectomy. 2. Hernia repair. 3. Right knee prosthesis circa 2018 by a [place] arthroplasty surgeon. SOCIAL HISTORY: Cigarette smoker, denies alcohol or drug use, lives alone. ALLERGIES: Please see the hospitalist's history of present illness. REVIEW OF SYSTEMS: A 14 point review of systems was negative unless otherwise described in the HPI above. PHYSICAL EXAMINATION: Declined secondary to COVID positive status. LABORATORY DATA: Elevated CRP secondary to COVID status. White blood cells 4.9. D-dimer was 1508 which was elevated. CRP was 3.23, previous 3.82. Temperature is 98.9. IMAGING: The patient's right femur x-rays demonstrate radiolucency about the previously placed distal femur megaprosthesis with fragmented residual cement within the canal. There appeared to be a very mild breach of the medial cortices abutting the cemented implant. While this technically is a fracture, it is better described as a breach in the cortice and erosion of the medial diaphyseal cortex possibly secondary to a radiolucency and windshield wiping of the prosthesis. Knee x-ray pending full length tibia x-ray on the right pending. IMPRESSION: This is a 60-year-old female with a complicated medical history, COVID-19 positive with likely septic versus aseptic distal femur megaprosthesis loosening. PLAN: At this point in time we will get a full series of right lower extremity radiographs to include a right knee and right tibia radiograph. Given her elevated CRP and likely distal femur loosening, I do believe we need to rule out a prosthetic joint infection given the patient's complicated medical history, radiolucency of the distal femur implant and frequent falls. When the patient is less infectious and is technically easier, I would like to acquire right knee aspirate in order to further analyze the synovial fluid to include synovial white blood cell count, gram stain, anaerobic and aerobic cultures and a synovial alpha-defensin. This will give us a lot more information regarding if this is truly a periprosthetic joint infection versus aseptic loosening. If it is a prosthetic joint infection, she may be a candidate for hardware removal and placement of an antibiotic coated space to include a possible antibiotic-coated knee spanning nail. If it is aseptic loosening, she should be optimized and follow up with her [facility] [place] arthroplasty surgeon from surgical versus nonsurgical treatment modalities. I will review the radiographs while rounding tomorrow and touch base with Dr. Colon after rounding tomorrow and we will discuss possible knee aspiration in the subsequent days.
[2020-10-04 16:00] VITALS: BP 127/61; O2SAT 97
[2020-10-04] MEDS ORDERED: ACETAMINOPHEN 500 MG TAB PO PRN (16:00)
[2020-10-04] MEDS: traMADol 50 MG TAB PO PRN ×2 (16:16→23:42)
[2020-10-04] MEDS: MORPHINE 2 MG/ML 1ML VIAL (J2270) IV PRN (17:56)
[2020-10-04 20:00] VITALS: BP 125/60; O2SAT 97
[2020-10-04] MEDS: ATORVASTATIN 20 MG TAB PO SCH (21:13)
[2020-10-05] MEDS: MORPHINE 2 MG/ML 1ML VIAL (J2270) IV PRN ×2 (01:27→11:17)
[2020-10-05 06:00] VITALS: BP 123/58
[2020-10-05 06:21] LABS: HEMATOCRIT 36.4 % (36.0-47.0); HEMOGLOBIN 11.7 g/dl (12.0-15.5); MEAN CORPUSCULAR HEMOGLOBIN 28.5 pg (27.0-33.0); MEAN CORPUSCULAR HGB CONC 32.1 g/dl (32.0-36.5); MEAN CORPUSCULAR VOLUME 88.8 fl (80.0-96.0); PLATELET COUNT, AUTOMATED 317 10^3/uL (150-450); WHITE BLOOD COUNT 5.5 10^3/uL (4.0-10.0)
[2020-10-05 06:58] LABS: BLOOD UREA NITROGEN 13 MG/DL (7-18); CALCIUM LEVEL 8.4 MG/DL (8.5-10.1); CARBON DIOXIDE LEVEL 26 MEQ/L (21-32); CHLORIDE LEVEL 114 MEQ/L (98-107); CREATININE FOR GFR 0.41 MG/DL (0.55-1.30); GLOMERULAR FILTRATION RATE > 60.0 (>51); GLUCOSE, FASTING 115 MG/DL (70-100); POTASSIUM SERUM 4.1 MEQ/L (3.5-5.1); SODIUM LEVEL 145 MEQ/L (136-145)
[2020-10-05 08:00] VITALS: O2SAT 95
[2020-10-05] MEDS: OMEPRAZOLE 20 MG CAP PO SCH (09:01)
[2020-10-05] MEDS: busPIRone 10 MG TAB PO SCH (09:01)
[2020-10-05] MEDS: ASPIRIN 81 MG ENTERIC TAB PO SCH (09:01)
[2020-10-05] MEDS: CETIRIZINE (ZyrTEC) 10 MG TAB PO SCH (09:01)
[2020-10-05] MEDS: PREGABALIN 75 MG CAP(LYRICA) PO SCH ×2 (09:01→21:12)
[2020-10-05] MEDS: POTASSIUM CHLORIDE 10 MEQ SR TABLET PO SCH (09:02)
[2020-10-05] MEDS: ESCITALOPRAM OXALATE 10 MG TAB (LEXAPRO) PO SCH (09:02)
[2020-10-05] MEDS: ENOXAPARIN 40MG/0.4ML SYRINGE (J1650 PER 10MG) SC SCH (09:03)
[2020-10-05] MEDS: traMADol 50 MG TAB PO PRN ×2 (09:03→17:30)
[2020-10-05] MEDS: HumaLOG INSULIN (NovoLOG) PER UNIT SC SCH ×4 (09:04→20:09)
[2020-10-05] MEDS: ADVAIR HFA 115/21MCG INHALER INH SCH ×2 (09:12→18:09)
[2020-10-05 12:00] VITALS: BP 111/55; O2SAT 96
--- NOTE | 2020-10-05 13:31 | IPN ---
PROGRESS NOTE DATE: 10/05/2020 SUBJECTIVE: Nolvia was admitted with generalized weakness, inability to walk, pain in her right knee after a fall. I have been discussing the case with Dr. Jarquin from Orthopedics. He plans aspiration of the knee today. The patient has a cough but she denies shortness of breath. She has COVID infection but no significant respiratory symptoms, just generalized weakness from this. PHYSICAL EXAMINATION: Vital signs: Blood pressure 123/58, pulse 53, respiratory rate 19, 94% O2 saturation. Lungs: A few rhonchi. Cardiac: Regular rate and rhythm. Abdomen: Soft, nontender. Extremities: Right knee is tender to palpate over the patella. There seems to be a small soft tissue swelling present. There is no abrasion, warmth, redness, or ecchymosis. LABS: CBC unremarkable. Electrolytes unremarkable. Renal function is stable. Potassium is up to 4.1. IMPRESSION/PLAN: 1. Right knee pain with abnormal imaging. Appreciate Orthopedics' assistance. Per our discussion, the plan is for arthrocentesis today. 2. Generalized weakness from COVID infection. No current pulmonary symptoms. No antiviral medication or Decadron indicated. Primary symptom is weakness. 3. Hypokalemia. This has resolved. 4. The rest of her medical problems are stable. She is still on sliding scale Insulin for her diabetes with good control of her blood sugars off her Metformin and glyburide while on an enforced diabetic diet.
[2020-10-05 16:00] VITALS: O2SAT 95
[2020-10-05 19:54] VITALS: BP 109/64
[2020-10-05 20:00] VITALS: O2SAT 96
[2020-10-05] MEDS: ATORVASTATIN 20 MG TAB PO SCH (21:12)
[2020-10-06 04:03] VITALS: BP 113/59
[2020-10-06 07:57] LABS: HEMATOCRIT 37.9 % (36.0-47.0); HEMOGLOBIN 12.6 g/dl (12.0-15.5); MEAN CORPUSCULAR HEMOGLOBIN 29.3 pg (27.0-33.0); MEAN CORPUSCULAR HGB CONC 33.2 g/dl (32.0-36.5); MEAN CORPUSCULAR VOLUME 88.1 fl (80.0-96.0); PLATELET COUNT, AUTOMATED 316 10^3/uL (150-450); WHITE BLOOD COUNT 7.4 10^3/uL (4.0-10.0)
[2020-10-06] MEDS: ADVAIR HFA 115/21MCG INHALER INH SCH (07:58)
[2020-10-06 08:00] VITALS: BP 110/57
[2020-10-06 08:23] LABS: BLOOD UREA NITROGEN 15 MG/DL (7-18); CALCIUM LEVEL 9.2 MG/DL (8.5-10.1); CARBON DIOXIDE LEVEL 25 MEQ/L (21-32); CHLORIDE LEVEL 111 MEQ/L (98-107); CREATININE FOR GFR 0.47 MG/DL (0.55-1.30); GLOMERULAR FILTRATION RATE > 60.0 (>51); GLUCOSE, FASTING 140 MG/DL (70-100); POTASSIUM SERUM 4.1 MEQ/L (3.5-5.1); SODIUM LEVEL 142 MEQ/L (136-145)
[2020-10-06] MEDS: ESCITALOPRAM OXALATE 10 MG TAB (LEXAPRO) PO SCH (09:00)
[2020-10-06] MEDS: busPIRone 10 MG TAB PO SCH (09:00)
[2020-10-06] MEDS: ENOXAPARIN 40MG/0.4ML SYRINGE (J1650 PER 10MG) SC SCH (09:01)
[2020-10-06] MEDS: PREGABALIN 75 MG CAP(LYRICA) PO SCH (09:01)
[2020-10-06] MEDS: OMEPRAZOLE 20 MG CAP PO SCH (09:01)
[2020-10-06] MEDS: ASPIRIN 81 MG ENTERIC TAB PO SCH (09:01)
[2020-10-06] MEDS: CETIRIZINE (ZyrTEC) 10 MG TAB PO SCH (09:01)
[2020-10-06] MEDS: HumaLOG INSULIN (NovoLOG) PER UNIT SC SCH ×2 (09:02→12:00)
[2020-10-06] MEDS: MORPHINE 2 MG/ML 1ML VIAL (J2270) IV PRN (11:15)
[2020-10-06 11:17] VITALS: O2SAT 97
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
== END 2020-10-06 16:55 | disposition home or self-care (01) | DRG 178 ==
LOC: M ED 21:10 → M ED INP 10-04 02:02 → M 4MAIN 10-04 06:24
PROVIDERS: ADMIT Family Medicine; ATTEND Internal Medicine
DX: U07.1 COVID-19 (principal); T84.032A Mechanical loosening of internal right knee prosthetic joint, initial encounter; M97.11XA Periprosthetic fracture around internal prosthetic right knee joint, initial encounter; R53.1 Weakness; J44.9 Chronic obstructive pulmonary disease, unspecified; E11.9 Type 2 diabetes mellitus without complications; G40.909 Epilepsy, unspecified, not intractable, without status epilepticus; F43.10 Post-traumatic stress disorder, unspecified; F31.9 Bipolar disorder, unspecified; I25.2 Old myocardial infarction; K21.9 Gastro-esophageal reflux disease without esophagitis; Z79.82 Long term (current) use of aspirin; Z79.899 Other long term (current) drug therapy; Z91.041 Radiographic dye allergy status; Z91.018 Allergy to other foods; Z91.011 Allergy to milk products; Z91.013 Allergy to seafood; G89.29 Other chronic pain; E78.5 Hyperlipidemia, unspecified; E87.6 Hypokalemia; F17.210 Nicotine dependence, cigarettes, uncomplicated

== ENCOUNTER 2020-10-25 06:47 | Emergency (ER) | payer MEDICARE, MEDICAID ==
[~2020-10-25] VITALS: Ht 152.4 cm; Wt 118.2 kg
[~2020-10-25 06:47] MED LIST changes: -ESCI20TA PO; +ESCI20TA16 PO; +IBUP80TA PO; +MONT10TA10; +MONT10TA10 PO; -MONT5TAB2; -MONT5TAB2 PO; +med rec comment
[2020-10-25] MEDS ORDERED: NS 500 ML IV ONE (07:30)
[2020-10-25 08:00] LABS: BASO # 0.1 10^3/uL (0.0-0.2); BASO % 0.6 % (0.0-1.0); EOS # 0.2 10^3/uL (0.0-0.5); EOS % 2.3 % (0.0-3.0); HEMATOCRIT 42.2 % (36.0-47.0); HEMOGLOBIN 13.4 g/dl (12.0-15.5); LYMPH # 1.7 10^3/uL (1.5-5.0); LYMPH % 19.8 % (24.0-44.0); MEAN CORPUSCULAR HEMOGLOBIN 28.3 pg (27.0-33.0); MEAN CORPUSCULAR HGB CONC 31.8 g/dl (32.0-36.5); MEAN CORPUSCULAR VOLUME 89.2 fl (80.0-96.0); MONO # 0.5 10^3/uL (0.0-0.8); MONO % 5.1 % (0.0-5.0); NEUTROPHILS # 6.3 10^3/uL (1.5-8.5); NEUTROPHILS % 71.5 % (36.0-66.0); PLATELET COUNT, AUTOMATED 268 10^3/uL (150-450); RED BLOOD COUNT 4.73 10^6/uL (4.00-5.40); WHITE BLOOD COUNT 8.8 10^3/uL (4.0-10.0)
[2020-10-25 08:21] LABS: BLOOD UREA NITROGEN 23 MG/DL (7-18); CALCIUM LEVEL 9.2 MG/DL (8.5-10.1); CARBON DIOXIDE LEVEL 25 MEQ/L (21-32); CHLORIDE LEVEL 111 MEQ/L (98-107); CREATININE FOR GFR 0.57 MG/DL (0.55-1.30); GLOMERULAR FILTRATION RATE > 60.0 (>51); GLUCOSE, FASTING 125 MG/DL (70-100); POTASSIUM SERUM 4.5 MEQ/L (3.5-5.1); SODIUM LEVEL 143 MEQ/L (136-145)
--- NOTE | 2020-10-25 08:46 | REP ---
INDICATION: DYSPNEA/COUGH. COMPARISON: 10/03/2020 TECHNIQUE: Portable FINDINGS: The technique utilized in obtaining the radiograph has magnified the cardiac silhouette and accentuated the interstitial markings. There is cardiomegaly accentuated by technique status quo. The lung min are stable. No acute patchy parenchymal opacities or pleural effusions have developed. The osseous structures are unchanged. IMPRESSION: There is no acute cardiopulmonary disease. <Electronically signed by Jono Giang > 10/25/20 [id number]
[2020-10-25] MEDS ORDERED: traMADol 50 MG TAB PO ONE (09:00)
[2020-10-25 11:17] VITALS: BP 126/76
== END 2020-10-25 11:15 | disposition home or self-care (01) ==
LOC: EDBD 06:47 → M ED 06:47
DX: R26.2 Difficulty in walking, not elsewhere classified (principal); Z86.19 Personal history of other infectious and parasitic diseases; I25.10 Atherosclerotic heart disease of native coronary artery without angina pectoris; I25.2 Old myocardial infarction; E11.9 Type 2 diabetes mellitus without complications; J44.9 Chronic obstructive pulmonary disease, unspecified; R56.9 Unspecified convulsions; F31.89 Other bipolar disorder; F43.10 Post-traumatic stress disorder, unspecified; F17.200 Nicotine dependence, unspecified, uncomplicated; Z79.82 Long term (current) use of aspirin; Z79.899 Other long term (current) drug therapy; Z91.018 Allergy to other foods; Z91.011 Allergy to milk products; Z91.02 Food additives allergy status; Z91.013 Allergy to seafood; Z91.041 Radiographic dye allergy status

== ENCOUNTER 2021-02-19 13:46 | Emergency (ER) | payer MEDICARE, MEDICAID ==
[~2021-02-19 13:46] MED LIST changes: -DIBU10OI TOP; +DIBU28OI2 TOP
--- NOTE | 2021-02-19 16:38 | REP ---
INDICATION: injury/trauma. COMPARISON: Frontal view of the chest obtained 10/03/2020 TECHNIQUE: 6 views FINDINGS: The exam is markedly limited due to the patient's body habitus. Not all ribs are properly penetrated to make a diagnosis of a fracture. The accompanying frontal view is unchanged from the portable exam showing cardiomegaly but no acute disease. Views of the ribs show no gross abnormality. . IMPRESSION: Exam is markedly limited. I cannot rule out a fracture. Consider CT. <Electronically signed by Jono Giang > 02/19/21 [id number]
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
[2021-02-19] MEDS ORDERED: ACETAMINOPHEN 325 MG TAB PO ONE (17:45)
[2021-02-19] MEDS ORDERED: ACET1TAB16 PO (18:00)
[2021-02-19 18:05] VITALS: BP 138/67
== END 2021-02-19 18:06 | disposition home or self-care (01) ==
LOC: M ED 13:46
DX: S22.41XA Multiple fractures of ribs, right side, initial encounter for closed fracture (principal); X58.XXXA Exposure to other specified factors, initial encounter; Y92.9 Unspecified place or not applicable; Y93.9 Activity, unspecified; Y99.9 Unspecified external cause status; I77.810 Thoracic aortic ectasia; I25.10 Atherosclerotic heart disease of native coronary artery without angina pectoris; I25.2 Old myocardial infarction; K21.9 Gastro-esophageal reflux disease without esophagitis; F17.200 Nicotine dependence, unspecified, uncomplicated; N20.0 Calculus of kidney; Z79.82 Long term (current) use of aspirin; Z79.84 Long term (current) use of oral hypoglycemic drugs; Z79.899 Other long term (current) drug therapy; Z91.018 Allergy to other foods; Z91.041 Radiographic dye allergy status; J30.89 Other allergic rhinitis; Z91.011 Allergy to milk products; Z91.02 Food additives allergy status

== ENCOUNTER 2021-02-25 14:49 | Emergency (ER) | payer MEDICARE, MEDICAID ==
[~2021-02-25] VITALS: Ht 152.4 cm; Wt 118.1 kg
[~2021-02-25 14:49] MED LIST changes: +ACET1TAB16 PO
[2021-02-25] MEDS ORDERED: LIDOCAINE 5% (LIDODERM) PATCH TD ONE (18:30)
[2021-02-25] MEDS ORDERED: traMADol 50 MG TAB PO ONE (18:30)
[2021-02-25] MEDS ORDERED: ANEC4CRE3 TOP (18:48)
[2021-02-25] MEDS ORDERED: TRAM50TA2 PO (18:48)
[2021-02-25 19:00] VITALS: BP 137/77
[2021-02-25] MEDS ORDERED: **NOTE PATIENT COMMENT** MISC XX SCH (21:00)
== END 2021-02-25 19:02 | disposition home or self-care (01) ==
LOC: M ED 14:49
DX: S22.49XD Multiple fractures of ribs, unspecified side, subsequent encounter for fracture with routine healing (principal); W19.XXXD Unspecified fall, subsequent encounter; Z79.899 Other long term (current) drug therapy; Z91.018 Allergy to other foods; Z91.041 Radiographic dye allergy status; Z91.048 Other nonmedicinal substance allergy status; Z91.011 Allergy to milk products; Z91.02 Food additives allergy status; Z91.013 Allergy to seafood

== ENCOUNTER 2021-06-05 21:53 | Emergency (ER) | payer MEDICARE, MEDICAID ==
[~2021-06-05] VITALS: Ht 165.1 cm; Wt 90.9 kg
[~2021-06-05 21:53] MED LIST changes: +ANEC4CRE3 TOP; +OLAN1TAB16 PO; -OLAN5TAB PO; -OLAN7.5T PO; +OLAN7.5T8 PO
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
[2021-06-06] MEDS ORDERED: ACETAMINOPHEN 500 MG TAB PO ONE (06:55)
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
[2021-06-06 08:16] LABS: BASO % 0.4 % (0.0-1.0); EOS # 0.1 10^3/uL (0.0-0.5); EOS % 1.5 % (0.0-3.0); HEMATOCRIT 42.1 % (36.0-47.0); LYMPH # 1.8 10^3/uL (1.5-5.0); LYMPH % 23.5 % (24.0-44.0); MEAN CORPUSCULAR HEMOGLOBIN 30.8 pg (27.0-33.0); MEAN CORPUSCULAR HGB CONC 33.3 g/dl (32.0-36.5); MEAN CORPUSCULAR VOLUME 92.5 fl (80.0-96.0); MONO # 0.5 10^3/uL (0.0-0.8); MONO % 6.6 % (2.0-8.0); NEUTROPHILS % 67.3 % (36.0-66.0); PLATELET COUNT, AUTOMATED 234 10^3/uL (150-450); RED BLOOD COUNT 4.55 10^6/uL (4.00-5.40); WHITE BLOOD COUNT 7.5 10^3/uL (4.0-10.0)
[2021-06-06 08:22] LABS: ALBUMIN 3.8 GM/DL (3.2-5.2); ALT/SGPT 21 U/L (12-78); BILIRUBIN,DIRECT 0.1 MG/DL (0.0-0.2); BILIRUBIN,TOTAL 0.5 MG/DL (0.2-1.0); BLOOD UREA NITROGEN 25 MG/DL (7-18); CALCIUM LEVEL 9.3 MG/DL (8.5-10.1); CARBON DIOXIDE LEVEL 28 MEQ/L (21-32); CHLORIDE LEVEL 107 MEQ/L (98-107); CPK CREATINE PHOSPHOKINASE 43 U/L (26-192); CREATININE FOR GFR 0.54 MG/DL (0.55-1.30); FREE T4 1.02 NG/DL (0.76-1.46); GLOMERULAR FILTRATION RATE > 60.0 (>51); GLUCOSE, FASTING 154 MG/DL (70-100); LIPASE 67 U/L (73-393); MB/CK RELATIVE INDEX 4.65 (< OR =4); NT-PRO BNP 116 PG/ML (<125); POTASSIUM SERUM 3.7 MEQ/L (3.5-5.1); SODIUM LEVEL 140 MEQ/L (136-145); THYROID STIMULATING HORMONE 0.937 uIU/ML (0.358-3.740); TOTAL PROTEIN 7.1 GM/DL (6.4-8.2); TROPONIN I < 0.02 NG/ML (< 0.10)
--- NOTE | 2021-06-06 08:50 | REP ---
INDICATION: CHEST PAIN. COMPARISON: Portable chest, 02/19/2021 TECHNIQUE: Upright AP view of the chest was obtained. FINDINGS: The lungs are clear. There is cardiomegaly without congestive heart failure. There are no pleural effusions. IMPRESSION: Cardiomegaly. No evidence of acute cardiopulmonary pathology. No significant change. <Electronically signed by Jesus Orantes > 06/06/21 [id number]
[2021-06-06 10:02] LABS: RSV AMPLIFICATION NEGATIVE (NEGATIVE)
[2021-06-06 12:00] VITALS: BP 118/63
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
--- NOTE | 2021-06-08 16:36 | ECGEPIP ---
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
== END 2021-06-06 15:15 | disposition short-term general hospital (02) ==
LOC: M ED 21:53
DX: S00.83XA Contusion of other part of head, initial encounter (principal); S16.1XXA Strain of muscle, fascia and tendon at neck level, initial encounter; S02.2XXA Fracture of nasal bones, initial encounter for closed fracture; M50.90 Cervical disc disorder, unspecified, unspecified cervical region; R07.89 Other chest pain; F07.81 Postconcussional syndrome; I51.7 Cardiomegaly; Y04.8XXA Assault by other bodily force, initial encounter; Y92.099 Unspecified place in other non-institutional residence as the place of occurrence of the external cause; Y93.89 Activity, other specified; Y99.9 Unspecified external cause status; I25.2 Old myocardial infarction; E11.9 Type 2 diabetes mellitus without complications; I10 Essential (primary) hypertension; K21.9 Gastro-esophageal reflux disease without esophagitis; F31.89 Other bipolar disorder; F43.10 Post-traumatic stress disorder, unspecified; F20.9 Schizophrenia, unspecified; J45.909 Unspecified asthma, uncomplicated; J44.9 Chronic obstructive pulmonary disease, unspecified; G43.909 Migraine, unspecified, not intractable, without status migrainosus; Z86.718 Personal history of other venous thrombosis and embolism; Z85.44 Personal history of malignant neoplasm of other female genital organs; Z86.16 Personal history of COVID-19; Z87.81 Personal history of (healed) traumatic fracture; F17.200 Nicotine dependence, unspecified, uncomplicated; M50.30 Other cervical disc degeneration, unspecified cervical region; Z79.82 Long term (current) use of aspirin; Z79.84 Long term (current) use of oral hypoglycemic drugs; Z79.899 Other long term (current) drug therapy; Z91.018 Allergy to other foods; Z91.041 Radiographic dye allergy status; Z91.011 Allergy to milk products; Z91.02 Food additives allergy status; Z91.013 Allergy to seafood; J30.89 Other allergic rhinitis

== ENCOUNTER 2021-07-10 13:25 | Emergency (ER) | payer MEDICARE, MEDICAID ==
[~2021-07-10] VITALS: Ht 157.5 cm; Wt 98.0 kg
[2021-07-10 14:08] LABS: HEMATOCRIT 38.6 % (36.0-47.0); HEMOGLOBIN 12.9 g/dl (12.0-15.5); MEAN CORPUSCULAR HEMOGLOBIN 30.6 pg (27.0-33.0); MEAN CORPUSCULAR HGB CONC 33.4 g/dl (32.0-36.5); MEAN CORPUSCULAR VOLUME 91.7 fl (80.0-96.0); PLATELET COUNT, AUTOMATED 203 10^3/uL (150-450); RED BLOOD COUNT 4.21 10^6/uL (4.00-5.40); WHITE BLOOD COUNT 10.9 10^3/uL (4.0-10.0)
[2021-07-10] MEDS ORDERED: NS 1,000 ML IV ONE (14:25)
[2021-07-10 14:55] LABS: ACETAMINOPHEN LEVEL 7.5 UG/ML (10.0-30.0); ALBUMIN 3.3 GM/DL (3.2-5.2); ALT/SGPT 15 U/L (12-78); BILIRUBIN,DIRECT 0.2 MG/DL (0.0-0.2); BILIRUBIN,TOTAL 0.6 MG/DL (0.2-1.0); BLOOD UREA NITROGEN 17 MG/DL (7-18); CALCIUM LEVEL 9.3 MG/DL (8.5-10.1); CARBON DIOXIDE LEVEL 24 MEQ/L (21-32); CHLORIDE LEVEL 112 MEQ/L (98-107); CREATININE FOR GFR 0.49 MG/DL (0.55-1.30); ETHYL ALCOHOL (ETHANOL) < 0.003 % (0.000-0.010); GLOMERULAR FILTRATION RATE > 60.0 (>51); GLUCOSE, FASTING 151 MG/DL (70-100); POTASSIUM SERUM 3.3 MEQ/L (3.5-5.1); SODIUM LEVEL 142 MEQ/L (136-145); THYROID STIMULATING HORMONE 0.431 uIU/ML (0.358-3.740); TOTAL PROTEIN 6.2 GM/DL (6.4-8.2)
[2021-07-10 15:33] VITALS: BP 114/57
== END 2021-07-10 16:01 | disposition home or self-care (01) ==
LOC: M ED 13:25 → EDBD 13:25 → M ED 16:01
DX: G89.29 Other chronic pain (principal); F28 Other psychotic disorder not due to a substance or known physiological condition; I25.2 Old myocardial infarction; E11.9 Type 2 diabetes mellitus without complications; J44.9 Chronic obstructive pulmonary disease, unspecified; F31.9 Bipolar disorder, unspecified; F17.200 Nicotine dependence, unspecified, uncomplicated; Z79.82 Long term (current) use of aspirin; J30.89 Other allergic rhinitis; Z79.84 Long term (current) use of oral hypoglycemic drugs; Z79.899 Other long term (current) drug therapy; Z91.013 Allergy to seafood; Z91.02 Food additives allergy status; Z91.011 Allergy to milk products; Z91.041 Radiographic dye allergy status

== ENCOUNTER 2022-07-08 05:11 | Emergency (ER) | payer MEDICARE, MEDICAID ==
[~2022-07-08 05:11] MED LIST changes: -ACET1TAB16 PO; +ACET300T48 PO; -CEFD1CAP8 PO; +CEFD300C41 PO; -MONT10TA10; -MONT10TA10 PO; +MONT10TA97; +MONT10TA97 PO; -TERB250T12 PO; +TERB250T91 PO; +TIZA10TA PO; -TIZA4TAB4 PO
[2022-07-08] MEDS ORDERED: ACETAMINOPHEN TAB 650MG DOSE (2X325MG) PO ONE (06:30)
[2022-07-08] MEDS ORDERED: KETOROLAC 30 MG/ML 1ML VIAL IM ONE (07:00)
[2022-07-08 09:00] VITALS: BP 134/77
== END 2022-07-08 11:18 | disposition home or self-care (01) ==
LOC: M ED 05:11
DX: S09.90XA Unspecified injury of head, initial encounter (principal); W05.2XXA Fall from non-moving motorized mobility scooter, initial encounter; T84.092A Other mechanical complication of internal right knee prosthesis, initial encounter; I25.2 Old myocardial infarction; E11.9 Type 2 diabetes mellitus without complications; E78.5 Hyperlipidemia, unspecified; F32.9 Major depressive disorder, single episode, unspecified; F41.9 Anxiety disorder, unspecified; M51.34 Other intervertebral disc degeneration, thoracic region; M16.0 Bilateral primary osteoarthritis of hip; M51.36 Other intervertebral disc degeneration, lumbar region; N28.89 Other specified disorders of kidney and ureter; J30.89 Other allergic rhinitis; K57.30 Diverticulosis of large intestine without perforation or abscess without bleeding; Z79.82 Long term (current) use of aspirin; Z79.899 Other long term (current) drug therapy; Z91.018 Allergy to other foods; Z91.041 Radiographic dye allergy status; Z91.011 Allergy to milk products; Z91.02 Food additives allergy status; Z91.013 Allergy to seafood
CPT/HCPCS: 70450; 72125; 72128; 72131; 72190; 73564; 96372; 99284; J1885

== ENCOUNTER → 2024-12-06 | Outpatient (REF) | payer MEDICARE, MEDICAID ==
[~2024-12-06] MED LIST changes: -ASPI-161 PO; +ASPI-615 PO; +CEFD1CAP9 PO; -CEFD300C41 PO; +MONT5TAB7 PO; +NYST-38; +NYST-38 SSP; +NYST100085 TOP; -NYST50SS; -NYST50SS SSP; -NYSTOI TOP; -SING5CHW23 PO
[2024-12-06 18:25] LABS: BASO % 0.4 % (0.0-1.0); EOS # 0.1 10^3/uL (0.0-0.5); EOS % 1.5 % (0.0-3.0); HEMATOCRIT 42.2 % (36.0-47.0); HEMOGLOBIN 14.2 g/dl (12.0-15.5); LYMPH # 2.4 10^3/uL (1.5-5.0); LYMPH % 30.8 % (24.0-44.0); MEAN CORPUSCULAR HGB CONC 33.6 g/dl (32.0-36.5); MEAN CORPUSCULAR VOLUME 92.1 fl (80.0-96.0); MONO # 0.6 10^3/uL (0.0-0.8); NEUTROPHILS # 4.7 10^3/uL (1.5-8.5); NEUTROPHILS % 59.8 % (36.0-66.0); PLATELET COUNT, AUTOMATED 283 10^3/uL (150-450); RED BLOOD COUNT 4.58 10^6/uL (4.00-5.40); WHITE BLOOD COUNT 7.9 10^3/uL (4.0-10.0)
[2024-12-06 18:52] LABS: ALKALINE PHOSPHATASE 95 U/L (35-104); ALT/SGPT 17 U/L (7.0-40); AST/SGOT 12 U/L (<34); BILIRUBIN,TOTAL 0.3 MG/DL (0.3-1.2); BLOOD UREA NITROGEN 29 MG/DL (9-23); CALCIUM LEVEL 9.8 MG/DL (8.3-10.6); CARBON DIOXIDE LEVEL 26 MMOL/L (20-31); CHLORIDE LEVEL 104 MMOL/L (98-107); CHOLESTEROL LEVEL 253 MG/DL (<200); CREATININE FOR GFR 0.59 MG/DL (0.55-1.30); GLOMERULAR FILTRATION RATE > 60.0 (>45); GLUCOSE, FASTING 103 MG/DL (74-106); HDL CHOLESTEROL 38.9 MG/DL (>40); NON-HDL-C 214.1 MG/DL; POTASSIUM SERUM 4.8 MMOL/L (3.5-5.1); SODIUM LEVEL 139 MMOL/L (136-145); TRIGLYCERIDES LEVEL 625 MG/DL (<150)
[2024-12-06 18:54] LABS: HEMOGLOBIN A1c 6.2 % (4.0-6.0)
[2024-12-06 18:55] LABS: THYROID STIMULATING HORMONE 0.788 uIU/ML (0.55-4.78)
== END ==
LOC: M LAB REF 17:39
PROVIDERS: ATTEND Nurse Practitioner Family
DX: E66.9 Obesity, unspecified (principal); R68.89 Other general symptoms and signs; Z79.899 Other long term (current) drug therapy; Z11.3 Encounter for screening for infections with a predominantly sexual mode of transmission; Z72.89 Other problems related to lifestyle